=== PATIENT | female | born 1980 | race Caucasian/White ===

== ENCOUNTER 2016-11-11 07:27 | Inpatient (IN) | payer OTHER ==
--- NOTE | 2016-11-09 12:32 | PAT Medication Instructions ---
Service Date Nov 09, 2016. Current Home Medication List Multivitamin (Multivitamin), 1 TAB PO QAM Medication Instructions For Your Scheduled Surgery - Hold the following medications the morning of surgery: Multivitamin (Multivitamin), 1 TAB PO QAM If you have any questions please call us at [phone] or [phone] ( [place]) or [phone]
[2016-11-09 13:06] LABS: BASO % 0.4 %; BASO ABS # 0.03 K/uL (0-0.2); COMPLETE YES; EOS % 0.8 %; HEMATOCRIT 30.3 % (37-47); IG% 0.3 %; LYMPH % 17.8 %; LYMPH ABS # 1.35 K/uL (1.2-3.4); MEAN CELL VOLUME 84.2 fL (80-100); MEAN CORPUSCULAR HEMOGLOBIN 28.9 pg (25-34); MEAN CORPUSCULAR HGB CONC 34.3 g/dl (32-36); MEAN PLATELET VOLUME 9.5 fL (7.4-10.4); MONO % 5.8 %; NEUT % 74.9 %; PLATELET COUNT 220 K/uL (130-400); WHITE BLOOD COUNT 7.59 K/uL (4.8-10.8)
[~2016-11-11] VITALS: Ht 157.5 cm; Wt 80.3 kg
[~2016-11-11 07:27] MED LIST: CEFAZOLIN IV 2,000 MG in DEXTROSE 5% 50ML IV SCH; CITRIC ACID/SODIUM CITRATE 15 ML UDC PO SCH; LACTATED RINGER'S 1000ML 1,000 ML IV SCH; MULT-506 PO
[2016-11-20] MEDS ORDERED: LACTATED RINGER'S 1000ML 1,000 ML IV PRN (07:29)
[2016-11-20] MEDS ORDERED: PENICILLIN G POTASSIUM IV 6 MU in DEXTROSE 5% 250ML 250 ML IV ONE (07:30)
[2016-11-20] MEDS ORDERED: LACTATED RINGER'S 1000ML 500 ML IV PRN ×3 (07:37→23:00)
[2016-11-20] MEDS ORDERED: OXYTOCIN 30 UNITS/500ML NSS IV PRN (07:45)
[2016-11-20] MEDS: LACTATED RINGER'S 1000ML 1,000 ML IV SCH ×2 (08:17→13:54)
[2016-11-20 08:39] LABS: HEMATOCRIT 30.2 % (37-47); MEAN CORPUSCULAR HEMOGLOBIN 29.4 pg (25-34); MEAN CORPUSCULAR HGB CONC 35.4 g/dl (32-36); MEAN PLATELET VOLUME 9.7 fL (7.4-10.4); PLATELET COUNT 212 K/uL (130-400); RED BLOOD COUNT 3.64 M/uL (4.2-5.4); WHITE BLOOD COUNT 7.15 K/uL (4.8-10.8)
--- NOTE | 2016-11-20 08:48 | HISTORY & PHYSICAL EXAMINATION ---
DATE OF ADMISSION: 11/20/2016 CHIEF COMPLAINT: Scheduled induction of labor secondary to post-dates and polyhydramnios. HISTORY OF PRESENT ILLNESS: The patient is a 36-year-old 4, para 1 at 40 weeks and 3 days' gestation, who presents to labor and delivery for a scheduled induction of labor secondary to being post her due date and polyhydramnios. Her care has been uncomplicated otherwise. She is GBS positive and will begin with penicillin for GBS prophylaxis. She had a history of 1 spontaneous vaginal delivery in April of 2012. PAST MEDICAL HISTORY: The patient had spontaneous miscarriage in May of 2011 and June of 2014. PAST SURGICAL HISTORY: She had 1 spontaneous vaginal delivery in April of 2012. The baby had imperforate anus, but is currently doing well. SOCIAL HISTORY: She denies tobacco, alcohol or drug use. MEDICATIONS: vitamins. ALLERGIES: No known drug allergies. LABS: Blood type is O positive, group B strep positive, rubella immune, hepatitis B surface antigen negative, and RPR nonreactive. PHYSICAL EXAMINATION: VITAL SIGNS: Blood pressure is 106/74, heart rate of 102, respiration rate of 20, and temperature of 97.9. GENERAL: The patient is awake, alert and oriented x3. She is in no acute distress. HEART: Regular rate and rhythm. LUNGS: Clear to auscultation bilaterally. ABDOMEN: Gravid uterus, appropriate for gestational age. Estimated weight 7-8 pounds. Bowel sounds present x4. EXTREMITIES: No clubbing, cyanosis or calf tenderness. VAGINAL EXAM: She is 4-cm dilated, 50% effaced and -3 station. heart tones are category 1. Contractions are irregular. ASSESSMENT AND PLAN: A 36-year-old 4, para 1 at 40 weeks and 3 days' gestation, will be admitted to labor and delivery for a scheduled induction of labor. Will begin with Pitocin per protocol and penicillin for GBS prophylaxis. Will augment labor as needed and anticipate vaginal delivery. SUE
[2016-11-20 09:00] VITALS: Ht 157.5 cm; Wt 80.3 kg
[2016-11-20] MEDS ORDERED: FENTANYL 2MCG/ML ROPIV 1.25MG/ML 100ML BAG EPI ONE (10:42)
[2016-11-20] MEDS ORDERED: EpHEDrine SULFATE INJ 50 MG/ML AMP ONE (10:42)
[2016-11-20] MEDS ORDERED: BUPIVACAINE 0.25% 30 ML VIAL ONE (10:42)
[2016-11-20] MEDS ORDERED: FENTANYL CITRATE INJ 50 MCG/1 ML 2 ML VIAL ONE (10:43)
[2016-11-20] MEDS ORDERED: EpHEDrine SULFATE INJ 50 MG/ML AMP IV PRN ×3 (11:45→23:00)
[2016-11-20] MEDS ORDERED: NALOXONE HCL INJ 0.4 MG/1 ML VIAL/CARP IV PRN (11:45)
[2016-11-20] MEDS: PENICILLIN G POTASSIUM IV 3 MU in DEXTROSE 5% 100ML 100 ML IV PRN ×2 (12:28→16:38)
[2016-11-20] MEDS ORDERED: TERBUTALINE SULFATE 1 MG/ML VIAL SQ ONE (15:15)
[2016-11-20] MEDS: FENTANYL 2MCG/ML ROPIV 1.25MG/ML 100ML BAG EPI PRN ×2 (16:23→19:42)
[2016-11-20] MEDS ORDERED: ONDANSETRON INJ 2 MG/ML 2 ML VIAL ONE ×2 (20:29→21:52)
[2016-11-20] MEDS ORDERED: ONDANSETRON INJ 2 MG/ML 2 ML VIAL IV STA (20:30)
[2016-11-20] MEDS ORDERED: CEFAZOLIN IV 2,000 MG in DEXTROSE 5% 50ML 50 ML IV STA (21:12)
[2016-11-20] MEDS ORDERED: CITRIC ACID/SODIUM CITRATE 15 ML UDC PO STA (21:12)
[2016-11-20] MEDS ORDERED: MoRPHine SULFATE PF 1 MG/ML 10 ML AMP/VIAL ONE (21:40)
[2016-11-20] MEDS ORDERED: PROPOFOL IV EMULSION 10 MG/ML 20 ML VIAL IV ONE (21:52)
[2016-11-20] MEDS ORDERED: PHENYLEPHRINE 100MCG/ML 5ML SYR ONE (21:52)
[2016-11-20] MEDS ORDERED: METOCLOPRAMIDE HCL INJ 5 MG/ML 2 ML VIAL ONE (21:52)
[2016-11-20] MEDS ORDERED: OXYTOCIN INJ 10 UNITS/ML VIAL ONE (21:52)
[2016-11-20] MEDS ORDERED: DC INTRASPINAL MORPHINE SCH (21:55)
[2016-11-20] MEDS ORDERED: MEPERIDINE HCL 25 MG/ML CARP ONE (22:01)
[2016-11-20] MEDS ORDERED: LACTATED RINGER'S 1000ML 1,000 ML IV SCH (22:48)
--- NOTE | 2016-11-20 22:56 | [facility] Post Operative Brief Note ---
Immediate Operative Summary Operative Date Nov 20, 2016. Pre-Operative Diagnosis IUP; Primary caesarean section for intolerance to labor Post-Operative Diagnosis Same Procedure(s) Performed Primary caesarean section Delivery of live male child at 2147 Lower uterine transverse incision Surgeon Dr. De La Cruz Track And Field Coach Surgeon(s) Meggan Garcia RN Estimated Blood Loss 1000cc Findings Patient delivered a viable male infant in the vertex position at 2147 on via PLTCS secondary to intolerance of labor. Weight was 8#2 oz with APGARs of 8 at 1 minute and 9 at 5 minutes. Cord blood obtained. Intact placenta with a 3 VC delivered manually at 2148. There was extensive adhesions to the posterior uterus. The sigmoid colon and bilateral tubes and ovaries were tightly adhered to the posterior uterus. Extensive scar tissue and signs of endometriosis noted. There was a 5-6 cm pedunculated fibroid located at the left anterior uterine wall. Uterus was somewhat boggy and enlarged consistent with a fibroid uterus. Both patient and baby tolerated the surgery well and was sent to recovery with stable vital signs. Fluids (cc crystalloids) 2800 Specimens placenta-exam cord blood Drains Medeiros to gravity Anesthesia Epidural bolus Complication(s) None Disposition L&D
[2016-11-20] MEDS ORDERED: SENNA 8.6 MG TAB PO PRN (23:00)
[2016-11-20] MEDS ORDERED: PROMETHAZINE HCL INJ 25 MG in SODIUM CHLORIDE 0.9% 50ML 50 ML IV PRN (23:00)
[2016-11-20] MEDS ORDERED: ONDANSETRON INJ 2 MG/ML 2 ML VIAL IV PRN ×2 (23:00)
[2016-11-20] MEDS ORDERED: ATROPINE SULFATE 0.1 MG/ML 5ML SYR IV PRN (23:00)
[2016-11-20] MEDS ORDERED: SUPERCREAM 0.870 % 15GM JAR EXT PRN (23:00)
[2016-11-20] MEDS ORDERED: NALOXONE HCL INJ 1 MG in SODIUM CHLORIDE 0.9% 1000ML 1,000 ML IV PRN ×4 (23:00)
[2016-11-20] MEDS ORDERED: LANOLIN OINT EXT PRN ×2 (23:00)
[2016-11-20] MEDS ORDERED: MEPERIDINE HCL 25 MG/ML CARP IV PRN ×2 (23:00)
[2016-11-20] MEDS ORDERED: PHENYLEPHRINE 100MCG/ML 5ML SYR IV PRN (23:00)
[2016-11-20] MEDS ORDERED: NALOXONE HCL 0.4 MG/1 ML VIAL/CARP IV PRN (23:00)
[2016-11-20] MEDS ORDERED: NALOXONE HCL INJ 0.08 MG in SYRINGE 1.8 ML IV PRN (23:00)
[2016-11-20] MEDS ORDERED: DiphenhydrAMINE HCL 50 MG/ML VIAL IV PRN (23:00)
[2016-11-20] MEDS ORDERED: BENZOCAINE 20% AER SPR 82.5 GM CAN EXT PRN (23:00)
[2016-11-20] MEDS ORDERED: PROMETHAZINE HCL INJ 12.5 MG in SODIUM CHLORIDE 0.9% 50ML 50 ML IV PRN (23:00)
[2016-11-20] MEDS ORDERED: NALBUPHINE HCL INJ 10 MG/ML AMP IV PRN (23:00)
[2016-11-20] MEDS ORDERED: SODIUM CHLORIDE 0.9% 1000ML 1,000 ML IV PRN (23:00)
[2016-11-20] MEDS ORDERED: MoRPHine SULFATE PF 1 MG/ML 10 ML AMP/VIAL EPI PRN (23:00)
[2016-11-20] MEDS ORDERED: DIPHTHERIA/TETANUS/PERTUSSIS 0.5 ML SYR/VIAL IM. ONE (23:00)
[2016-11-20] MEDS ORDERED: HYDROCORTISONE ACETATE 25 MG SUPP PR PRN (23:00)
[2016-11-20] MEDS ORDERED: NO NARCOTICS OR SEDATIVES SCH (23:00)
--- NOTE | 2016-11-20 23:04 | Anesthesia Procedure Note ---
Anesthesia Epidural Removal Nt Date & Time Nov 20, 2016 at 23:04 Vital Signs Pain Intensity: 3.0 Notes Mental Status: alert / awake / arousable, participated in evaluation Nausea / Vomiting: adequately controlled Pain: adequately controlled Airway Patency, RR, SpO2: stable & adequate BP & HR: stable & adequate Hydration State: stable & adequate Neuraxial Anesthesia: was administered Anesthetic Complications: no major complications apparent, pt satisfied with anesthetic care Epidural: removed without complications, with tip intact
[2016-11-20 23:25] LABS: HEMATOCRIT 25.6 % (37-47)
[2016-11-20] MEDS: OXYTOCIN INJ 30 UNITS in LACTATED RINGER'S 1000ML 1,000 ML IV SCH (23:39)
[2016-11-21] VITALS (21 sets, daily range): BP systolic 96–119; BP diastolic 62–77; PULSE 81–98; TEMP 36.6–37.4; O2SAT 95–100
--- NOTE | 2016-11-21 00:41 | OPERATIVE REPORT ---
DATE OF OPERATION: 11/20/2016 PREOPERATIVE DIAGNOSES: 1. Intrauterine at 40 weeks and 3 days gestation. 2. Polyhydramnios. 3. intolerance of labor. POSTOPERATIVE DIAGNOSES: Same. 4. Fibroid uterus. 5. Extensive uterine adhesions. OPERATIVE PROCEDURE: Primary low transverse section. SURGEON: Dr. De La Cruz. DROP PIT WORKER: Meggan Garcia RN. ANESTHESIA: Bolus of her epidural. ESTIMATED BLOOD LOSS: 1000 mL. IV FLUIDS: 2800 mL crystalloids. URINE OUTPUT: 25 mL clear urine. SPECIMENS: Placenta and cord blood. DRAINS: Medeiros to gravity. COMPLICATIONS: None. DISPOSITION: To labor and delivery. OPERATIVE FINDINGS: The patient delivered a viable male infant in the vertex position at 2147 on 11/20/2016 via primary low transverse section secondary to intolerance of labor. Weight was 8 pounds 2 ounces with Apgars of 8 at 1 minute and 9 at 5 minutes. Cord blood was obtained and intact placenta with 3-vessel cord delivered manually at 2148 and sent to pathology. There were extensive adhesions to the posterior uterus. Sigmoid colon and bilateral fallopian tubes and ovaries were tightly adhered to the posterior uterus. There was extensive scar tissue and signs of endometriosis noted. There was also a 5-6 cm pedunculated fibroid located at the left anterior uterus. The uterus was somewhat boggy and enlarged, consistent with fibroid uterus. Both patient and baby tolerated the surgery well and were sent to recovery with stable vital signs. INDICATIONS FOR PROCEDURE: The patient is a 36-year-old 4, para 1 at 40 weeks and 3 days gestation who was scheduled for induction of labor, secondary to being postdates and polyhydramnios. On the morning of 11/20/2016, she was found to be 4 cm dilated. On admission, oxytocin per protocol was started. She received an epidural for anesthesia. Artificial rupture of membranes was performed at 1331 with copious amount of clear amniotic fluid noted. Oxytocin was continued. Baby had a prolonged deceleration and therefore Pitocin was stopped. After the baby recovered with category 1 strip, oxytocin was restarted. Baby continued to have variable and late decelerations. The patient reached anterior lip, 100% effaced and 0 station. A trial of pushing was begun with no descent; therefore, she was allowed to labor down. The baby continued to have recurrent late decelerations; therefore, a primary section was called. Risks, benefits and alternatives were discussed with the patient and informed consent was obtained. OPERATIVE PROCEDURE IN DETAIL: The patient was taken to the operating room and was placed in a supine position with a left lateral tilt. Her epidural was bolused. She was prepped and draped in a manner appropriate for the procedure. Once anesthesia was found to be adequate, a Pfannenstiel skin incision was made 2 fingerbreadths above the pubic symphysis and was carried down through to a layer of the rectus fascia. Fascia was nicked in the midline and extended bilaterally with curved Burkett scissors. The superior aspect of the fascial incision was grasped with Felipe clamps, elevated, and the rectus muscles were dissected off with the use of the curved Burkett scissors and electrocautery. Likewise, the inferior aspect of the fascial incision was grasped with Felipe clamps, elevated, and the rectus muscles were dissected off with the use of electrocautery and curved Burkett scissors. Rectus muscles were in the midline. The peritoneum was entered bluntly and extended cephalocaudally with gentle traction. A bladder blade was then placed within the abdomen. The vesicouterine peritoneum was identified and a bladder flap was created with the Metzenbaum scissors and digital traction. The bladder flap was reincorporated beneath the [place] blade. A transverse incision was then made on the uterus and extended bilaterally with digital traction. The head was identified and delivered through the incision along with the rest of the body. Baby was bulb suctioned at delivery. Cord was clamped x2 and cut. The baby was immediately handed to the awaiting package checker for further evaluation and management. Please see their notes for further baby assessment. Cord blood was then obtained and an intact placenta with 3-vessel cord was delivered through the incision manually and sent to pathology. The uterus was then exteriorized and wrapped in a moist laparotomy sponge. The uterus was then cleared of any trailing membrane and debris with a laparotomy sponge. The uterine incision was grasped with ring forceps at 4 quadrants and was closed with 0 Vicryl suture in continuous locking fashion. A second layer of 0 Vicryl suture was used in an imbricating fashion to ensure hemostasis. Any residual bleeding was suture ligated with 0 Vicryl suture in a [id number] interrupted fashion. Excellent hemostasis was noted. The posterior cul-de-sac was then irrigated with warm saline solution. It was noted that there was extensive scar tissue at the posterior uterus. The sigmoid colon and bilateral fallopian tubes and ovaries were tightly adhered to the posterior wall of the uterus. There was also a 5-6 cm pedunculated fibroid located at the left side anterior uterus. Inspection of the uterine incision was again noted to be hemostatic. The uterus was then placed back within its normal anatomic position within the abdomen. The anterior cul-de-sac was then irrigated with warm saline solution. Any residual bleeding was suture ligated with 0 Vicryl suture in a [id number] interrupted fashion. Seprafilm was placed over the uterine incision along the fundus of the uterus. All instruments were then removed from the abdomen. The peritoneum was then grasped with Jade clamps and was closed with 2-0 Vicryl suture in continuous running fashion. Rectus fascia was then closed with 0 Vicryl suture in continuous running fashion. The subcutaneous tissue was then reapproximated with 2-0 Vicryl suture in an interrupted fashion. Skin was then closed with carlos. Excellent hemostasis was noted through all tissue layers. All sponge and instrument counts were found to be correct x2. The patient tolerated the surgery well and was sent to recovery with stable vital signs. I attest to the content of the Intraoperative Record and any orders documented therein. Any exceptio ns are noted below.
[2016-11-21 07:08] LABS: HEMATOCRIT 21.8 % (37-47); MEAN CELL VOLUME 83.8 fL (80-100); MEAN CORPUSCULAR HEMOGLOBIN 29.2 pg (25-34); MEAN CORPUSCULAR HGB CONC 34.9 g/dl (32-36); MEAN PLATELET VOLUME 9.2 fL (7.4-10.4); PLATELET COUNT 140 K/uL (130-400); WHITE BLOOD COUNT 18.63 K/uL (4.8-10.8)
[2016-11-21 07:32] LABS: BASO % 0.1 %; BASO ABS # 0.01 K/uL (0-0.2); COMPLETE YES; IG% 0.3 %; LYMPH % 5.5 %; LYMPH ABS # 1.03 K/uL (1.2-3.4); MONO % 3.5 %; NEUT % 90.6 %; TEAR DROP CELLS 1+
--- NOTE | 2016-11-21 07:56 | Anesthesiology Progress Note ---
Anesthesia Post Op Note Date & Time Nov 21, 2016 at 07:56 Vital Signs Pain Intensity: 1.0 Vital Signs Past 12 Hours Date Time Temp Pulse Resp B/P Pulse Ox O2 Delivery O2 Flow Rate FiO2 11/21/16 06:27 18 95 11/21/16 05:30 18 98 11/21/16 04:30 18 100 11/21/16 04:25 36.6 87 18 115/76 100 Room Air 11/21/16 03:30 18 97 11/21/16 02:30 18 97 11/21/16 01:30 36.8 98 18 109/69 98 Room Air 11/21/16 01:30 18 98 11/21/16 01:30 98 Room Air Notes Mental Status: alert / awake / arousable, participated in evaluation Pt Amnestic to Procedure: Yes Nausea / Vomiting: adequately controlled Pain: adequately controlled Airway Patency, RR, SpO2: stable & adequate BP & HR: stable & adequate Hydration State: stable & adequate Anesthetic Complications: no major complications apparent
[2016-11-21] MEDS ORDERED: FERROUS SULFATE 325 MG TAB PO SCH (08:00)
--- NOTE | 2016-11-21 08:24 | OB/GYN Progress Note ---
BUSINESS LINE CONTROLLER Progress Note Date of Service: Nov 21, 2016. Patient is seen and examined. She feels well, no complaints. Pain is under control with meds. Not OOB yet Medeiros is in, draining clear yellow urine Tolerating clears Flatus neg Bleeding is minimal No fever/ chills/ CP/ SOB/dizziness/ N&V/ Leg pain Breast feeding without problems Date Time Temp Pulse Resp B/P Pulse Ox O2 Delivery O2 Flow Rate FiO2 11/21/16 07:55 36.6 81 16 119/77 99 Room Air 11/21/16 06:27 18 95 11/21/16 05:30 18 98 11/21/16 04:30 18 100 11/21/16 04:25 36.6 87 18 115/76 100 Room Air 11/21/16 03:30 18 97 11/21/16 02:30 18 97 11/21/16 01:30 36.8 98 18 109/69 98 Room Air 11/21/16 01:30 18 98 11/21/16 01:30 98 Room Air 8-Hour Column 11/20/16 11/21/16 11/21/16 16:00 00:00 08:00 Intake Total 615 ml Output Total 550 ml Balance 65 ml 24-Hour Column 11/21/16 08:00 Intake Total 615 ml Output Total 550 ml Balance 65 ml Last 24 Hours Test 11/20/16 23:21 11/21/16 06:50 Hemoglobin 8.8 g/dL 7.6 g/dL Hematocrit 25.6 % 21.8 % White Blood Count 18.63 K/uL Red Blood Count 2.60 M/uL Mean Corpuscular Volume 83.8 fL Mean Corpuscular Hemoglobin 29.2 pg Mean Corpuscular Hemoglobin Concent 34.9 g/dl Platelet Count 140 K/uL Mean Platelet Volume 9.2 fL Neutrophils (%) (Auto) 90.6 % Lymphocytes (%) (Auto) 5.5 % Monocytes (%) (Auto) 3.5 % Eosinophils (%) (Auto) 0.0 % Basophils (%) (Auto) 0.1 % Neutrophils # (Auto) 16.88 K/uL Lymphocytes # (Auto) 1.03 K/uL Monocytes # (Auto) 0.66 K/uL Eosinophils # (Auto) 0.00 K/uL Basophils # (Auto) 0.01 K/uL RDW Standard Deviation 46.7 fL RDW Coefficient of Variation 15.1 % Immature Granulocyte % (Auto) 0.3 % Immature Granulocyte # (Auto) 0.05 K/uL Tear Drop Cells 1+ PE: General: Alert, orientedx3, NAD CVS: S1S2 RRR Lungs; CTAB Abd: soft, NT, fundus firm, at the Umbilicus, BS+ Incision/ Dressinf Clean, dry Perineum intact, Lochia rubra minimal Ext; NT, no edema, SCD 's on AP: 36 yo s/p C Section, pod# 1 VSS Afebrile doing well Anemic: asymptomatic, normal pulse and UOP Discussed blood transfusion, the risks and benefits Decided to hold on than until noon and recheck H&H Continue to monitor to monitor Dangle legs and then ambulate this evening All questions were answered
[2016-11-21] MEDS: FERROUS SULFATE 325 MG TAB PO SCH ×2 (08:49→20:07)
[2016-11-21] MEDS: PRENATAL VITAMIN TAB PO SCH (08:50)
[2016-11-21] MEDS: DOCUSATE SODIUM 100 MG CAP PO SCH ×2 (08:50→20:06)
[2016-11-21] MEDS: SIMETHICONE 80 MG CHEW PO SCH ×4 (08:51→20:06)
[2016-11-21] MEDS: OXYTOCIN INJ 30 UNITS in LACTATED RINGER'S 1000ML 1,000 ML IV SCH (10:28)
[2016-11-21 12:36] LABS: HEMATOCRIT 21.9 % (37-47); MEAN CELL VOLUME 84.6 fL (80-100); MEAN CORPUSCULAR HEMOGLOBIN 29.3 pg (25-34); MEAN CORPUSCULAR HGB CONC 34.7 g/dl (32-36); MEAN PLATELET VOLUME 9.3 fL (7.4-10.4); PLATELET COUNT 134 K/uL (130-400); RED BLOOD COUNT 2.59 M/uL (4.2-5.4); WHITE BLOOD COUNT 17.12 K/uL (4.8-10.8)
[2016-11-21 13:15] LABS: BASO % 0.1 %; BASO ABS # 0.01 K/uL (0-0.2); COMPLETE YES; EOS % 0.1 %; IG% 0.3 %; LYMPH % 5.2 %; LYMPH ABS # 0.89 K/uL (1.2-3.4); MONO % 3.5 %; NEUT % 90.8 %; TEAR DROP CELLS OCCASIONAL
[2016-11-21] MEDS ORDERED: OXYCODONE/ACETAMINOPHEN 5-325 TAB PO PRN (15:00)
[2016-11-21] MEDS: KETOROLAC TROMETHAMINE 30 MG/ML VIAL IV. PRN (15:29)
[2016-11-21] MEDS: OXYCODONE/ACETAMINOPHEN 5-325 TAB PO PRN ×2 (20:06→23:52)
[2016-11-21] MEDS ORDERED: BISACODYL 5 MG TABEC PO ONE (22:00)
--- NOTE | 2016-11-21 23:31 | OB/GYN Progress Note ---
CUFF FOLDER Progress Note Date of Service: Nov 21, 2016. Patient is reevaluated She feels well She has been up to BR X3 without dizziness or light headedness Has been voiding w/o problems Pain is under control with meds Bleeding is minimal VSS Afebrile H&H was low but stable at noon Plan to repeat in am Continue to monitor closely
[2016-11-21] MEDS: IBUPROFEN 600 MG TAB PO PRN (23:51)
[2016-11-22] VITALS (15 sets, daily range): BP systolic 92–122; BP diastolic 61–79; PULSE 70–92; TEMP 36.3–36.9; O2SAT 97
[2016-11-22] MEDS: IBUPROFEN 600 MG TAB PO PRN ×5 (03:40→20:53)
[2016-11-22] MEDS: OXYCODONE/ACETAMINOPHEN 5-325 TAB PO PRN ×5 (03:41→20:53)
[2016-11-22] MEDS: SIMETHICONE 80 MG CHEW PO SCH ×4 (07:48→20:10)
[2016-11-22] MEDS: FERROUS SULFATE 325 MG TAB PO SCH ×2 (07:48→20:10)
[2016-11-22] MEDS: DOCUSATE SODIUM 100 MG CAP PO SCH ×2 (07:48→20:10)
[2016-11-22] MEDS: MAGNESIUM HYDROXIDE SUSP 30 ML UDC PO PRN ×2 (07:56→14:30)
[2016-11-22 08:11] LABS: HEMATOCRIT 19.4 % (37-47); MEAN CELL VOLUME 84.7 fL (80-100); MEAN CORPUSCULAR HEMOGLOBIN 29.3 pg (25-34); MEAN CORPUSCULAR HGB CONC 34.5 g/dl (32-36); MEAN PLATELET VOLUME 9.4 fL (7.4-10.4); PLATELET COUNT 141 K/uL (130-400); RED BLOOD COUNT 2.29 M/uL (4.2-5.4); WHITE BLOOD COUNT 15.47 K/uL (4.8-10.8)
[2016-11-22 08:22] LABS: COMPLETE YES; EOS % 0.3 %; IG% 0.4 %; LYMPH % 7.2 %; LYMPH ABS # 1.12 K/uL (1.2-3.4); MONO % 3.9 %; NEUT % 88.2 %
--- NOTE | 2016-11-22 08:34 | OB/GYN Progress Note ---
LICENSED PSYCHIATRIC TECHNICIAN Progress Note Date of Service: Nov 22, 2016. Patient is seen and examined. She feels well, no complaints. Pain is under control with oral meds. Ambulating without dizziness Voiding without difficulty Tolerating clear diet with out N&V Flatus neg Bleeding is minimal No fever/ chills/ CP/ SOB/ N&V/ Leg pain Breast feeding without problems Date Time Temp Pulse Resp B/P Pulse Ox O2 Delivery O2 Flow Rate FiO2 11/22/16 03:42 36.4 70 18 92/61 97 Room Air 11/21/16 23:30 37.1 82 18 96/62 97 Room Air 11/21/16 23:30 97 Room Air 11/21/16 19:45 37.4 96 16 112/69 97 Room Air 11/21/16 15:30 36.8 96 20 109/73 Room Air 11/21/16 15:30 99 Room Air 11/21/16 15:00 98 11/21/16 15:00 20 99 11/21/16 14:00 16 99 11/21/16 13:00 18 99 11/21/16 12:01 18 99 11/21/16 11:59 36.7 89 18 108/73 99 Room Air 11/21/16 11:30 18 99 11/21/16 10:30 18 99 11/21/16 09:30 18 99 Last 24 Hours Test 11/21/16 12:27 11/22/16 07:30 White Blood Count 17.12 K/uL 15.47 K/uL Red Blood Count 2.59 M/uL 2.29 M/uL Hemoglobin 7.6 g/dL 6.7 g/dL Hematocrit 21.9 % 19.4 % Mean Corpuscular Volume 84.6 fL 84.7 fL Mean Corpuscular Hemoglobin 29.3 pg 29.3 pg Mean Corpuscular Hemoglobin Concent 34.7 g/dl 34.5 g/dl Platelet Count 134 K/uL 141 K/uL Mean Platelet Volume 9.3 fL 9.4 fL Neutrophils (%) (Auto) 90.8 % 88.2 % Lymphocytes (%) (Auto) 5.2 % 7.2 % Monocytes (%) (Auto) 3.5 % 3.9 % Eosinophils (%) (Auto) 0.1 % 0.3 % Basophils (%) (Auto) 0.1 % 0.0 % Neutrophils # (Auto) 15.56 K/uL 13.64 K/uL Lymphocytes # (Auto) 0.89 K/uL 1.12 K/uL Monocytes # (Auto) 0.60 K/uL 0.60 K/uL Eosinophils # (Auto) 0.01 K/uL 0.05 K/uL Basophils # (Auto) 0.01 K/uL 0.00 K/uL RDW Standard Deviation 47.3 fL 47.9 fL RDW Coefficient of Variation 15.3 % 15.5 % Immature Granulocyte % (Auto) 0.3 % 0.4 % Immature Granulocyte # (Auto) 0.05 K/uL 0.06 K/uL Tear Drop Cells OCCASIONAL Red Blood Cell Morphology Unremarkable PE: General: Alert, orientedx3, NAD CVS: S1S2 RRR Lungs; CTAB Abd: soft, NT, fundus firm, below Umbilicus Incision: Clean, dry, intact Perineum intact, Lochia rubra minimal Ext; NT, no edema AP: 36 yo s/p C Section, pod# 2 VSS Afebrile doing well Anemic: H&H lower today, still tolerating well Discussed blood transfusion and the risks and benefits agrees and signed the consent Will transfuse 2 units Continue routine postop care Encourage ambulation, PO intake All questions were answered
[2016-11-22] MEDS: PRENATAL VITAMIN TAB PO SCH (09:10)
--- NOTE | 2016-11-22 11:14 | OB/GYN Progress Note ---
RANCH HAND Progress Note Date of Service: Nov 22, 2016. Blood transfusion has started Patient feels well, no complaints Premedicated with acetaminophen and Benadryl VSS Afebrile She is eating a popsicle now Continue to monitor closely
[2016-11-22] MEDS ORDERED: BISACODYL 10 MG SUPP ONE (14:24)
[2016-11-22] MEDS: MAGNESIUM HYDROXIDE SUSP 30 ML UDC PO SCH ×2 (20:00→23:04)
[2016-11-22] MEDS: BISACODYL 10 MG SUPP PR SCH (20:00)
[2016-11-22] MEDS ORDERED: MoRPHine SULFATE 2 MG/ML CARP IV STA (22:35)
--- NOTE | 2016-11-22 22:43 | OB/GYN Progress Note ---
STEAM TABLE ASSOCIATE Progress Note Date of Service: Nov 22, 2016. Patient is reevaluated I saw her this afternoon for unbale to pass gas Her abdomen was distended with bolwe loops with good BS, soft She was ordered MOM bid, Dulcolax Bid She took both once and moved her bowels x2, normal amount She has not been passing gas much but burping more She c/o soreness in incision and back pain. Pain 6-7/10, s/p 1 percoset and Motrin at 2100 She tolerated regular diet with no N&V She walked in the [place] with no dizzenss Date Time Temp Pulse Resp B/P Pulse Ox O2 Delivery O2 Flow Rate FiO2 11/22/16 16:15 36.9 79 16 117/77 Room Air 11/22/16 16:15 36.9 79 16 117/77 11/22/16 16:15 Room Air 11/22/16 15:15 36.8 85 20 122/79 11/22/16 14:45 36.8 80 18 103/69 11/22/16 14:15 36.7 92 20 110/69 11/22/16 14:00 36.7 81 18 112/75 11/22/16 13:39 36.6 81 20 111/75 11/22/16 13:10 36.6 81 20 111/75 11/22/16 12:15 36.3 73 20 109/73 11/22/16 11:45 36.5 81 16 106/70 11/22/16 11:15 36.6 80 18 97/61 11/22/16 11:00 36.7 84 18 110/66 11/22/16 10:47 36.6 86 18 104/68 11/22/16 10:10 36.6 86 18 104/68 11/22/16 07:50 36.6 74 22 110/76 11/22/16 03:42 36.4 70 18 92/61 97 Room Air 11/21/16 23:30 37.1 82 18 96/62 97 Room Air 11/21/16 23:30 97 Room Air Abd: soft, distended, appropriately tender around incision, BS+, tympanic to percussion Fundus firm below U Lochia minimal Plan: Second dose of MOM, one time IV morphine for pain H&H, s/p 2 units of PRBCC Continue to monitor closely
[2016-11-22] MEDS ORDERED: BISACODYL 10 MG SUPP PR PRN (23:00)
[2016-11-23 00:20] VITALS: BP 123/80; PULSE 89; TEMP 36.7; O2SAT 97
[2016-11-23] MEDS: IBUPROFEN 600 MG TAB PO PRN (01:00)
[2016-11-23] MEDS: OXYCODONE/ACETAMINOPHEN 5-325 TAB PO PRN (01:01)
[2016-11-23] MEDS: ONDANSETRON INJ 2 MG/ML 2 ML VIAL IV PRN (06:12)
[2016-11-23 06:22] LABS: BASO % 0.1 %; BASO ABS # 0.01 K/uL (0-0.2); COMPLETE YES; EOS % 0.3 %; HEMATOCRIT 32.1 % (37-47); IG% 0.4 %; LYMPH % 4.8 %; LYMPH ABS # 0.74 K/uL (1.2-3.4); MEAN CELL VOLUME 85.4 fL (80-100); MEAN PLATELET VOLUME 9.4 fL (7.4-10.4); MONO % 2.3 %; NEUT % 92.1 %; PLATELET COUNT 228 K/uL (130-400); RED BLOOD COUNT 3.76 M/uL (4.2-5.4)
[2016-11-23 08:00] VITALS: BP 125/84; PULSE 78; TEMP 37; O2SAT 97
[2016-11-23] MEDS: DOCUSATE SODIUM 100 MG CAP PO SCH ×2 (08:00→20:00)
[2016-11-23] MEDS: SIMETHICONE 80 MG CHEW PO SCH ×3 (08:00→20:00)
[2016-11-23] MEDS: PRENATAL VITAMIN TAB PO SCH (08:00)
[2016-11-23] MEDS: FERROUS SULFATE 325 MG TAB PO SCH ×2 (08:00→20:00)
[2016-11-23] MEDS: KETOROLAC TROMETHAMINE 30 MG/ML VIAL IV. PRN ×3 (08:14→21:05)
--- NOTE | 2016-11-23 08:24 | OB/GYN Progress Note ---
MARKETING FORECASTER Progress Note Date of Service Nov 23, 2016. Subjective conversation w/ patient, physical exam Ambulation: limited ambulation Voiding: no voiding problems Passing Gas: No Diet Tolerance: Nausea/Vomiting Lochia: Small Pain: 6-7/10 Notes: Patient having significant abdominal distention and pain along with nausea and vomiting. Has had a bowel movement x 2. Incision is c/d/i. Will order abdominal x-ray, suspect postop ileus, will consider NG tube. Objective Vital Signs Date Time Temp Pulse Resp B/P Pulse Ox O2 Delivery O2 Flow Rate FiO2 11/23/16 00:20 36.7 89 24 123/80 97 Room Air 11/23/16 00:20 97 Room Air 11/22/16 16:15 36.9 79 16 117/77 Room Air 11/22/16 16:15 36.9 79 16 117/77 11/22/16 16:15 Room Air 11/22/16 15:15 36.8 85 20 122/79 11/22/16 14:45 36.8 80 18 103/69 11/22/16 14:15 36.7 92 20 110/69 11/22/16 14:00 36.7 81 18 112/75 11/22/16 13:39 36.6 81 20 111/75 11/22/16 13:10 36.6 81 20 111/75 11/22/16 12:15 36.3 73 20 109/73 11/22/16 11:45 36.5 81 16 106/70 11/22/16 11:15 36.6 80 18 97/61 11/22/16 11:00 36.7 84 18 110/66 11/22/16 10:47 36.6 86 18 104/68 11/22/16 10:10 36.6 86 18 104/68 Physical Exam General Appearance: uncomfortable, in pain, moderate distress Respiratory/Chest: chest non-tender, lungs clear Cardiovascular: regular rate, rhythm Abdomen: + abnormal bowel sounds, + distended Incision Description: Clean, Dry & Intact Extremities: normal range of motion, non-tender, no calf tenderness Laboratory Results Last 24 Hours Test 11/22/16 22:51 11/23/16 06:02 Hemoglobin 9.8 g/dL 10.9 g/dL Hematocrit 28.0 % 32.1 % White Blood Count 15.40 K/uL Red Blood Count 3.76 M/uL Mean Corpuscular Volume 85.4 fL Mean Corpuscular Hemoglobin 29.0 pg Mean Corpuscular Hemoglobin Concent 34.0 g/dl Platelet Count 228 K/uL Mean Platelet Volume 9.4 fL Neutrophils (%) (Auto) 92.1 % Lymphocytes (%) (Auto) 4.8 % Monocytes (%) (Auto) 2.3 % Eosinophils (%) (Auto) 0.3 % Basophils (%) (Auto) 0.1 % Neutrophils # (Auto) 14.18 K/uL Lymphocytes # (Auto) 0.74 K/uL Monocytes # (Auto) 0.36 K/uL Eosinophils # (Auto) 0.05 K/uL Basophils # (Auto) 0.01 K/uL RDW Standard Deviation 47.0 fL RDW Coefficient of Variation 15.1 % Immature Granulocyte % (Auto) 0.4 % Immature Granulocyte # (Auto) 0.06 K/uL Assessment and Plan Post-Op Day Number: 3 Continue Routine Care: -Abdominal X-ray. suspect postop ileus, will consider NG tube pending results -NPO for now -Encourage ambulation -Toradol for pain -closely monitor.
--- NOTE | 2016-11-23 08:47 | DIAGNOSTIC IMAGING REPORT ---
ABDOMEN 2VIEW W/PA CHEST RTN CLINICAL HISTORY: post c section, abdominal pain, distention pain. Nausea. COMPARISON STUDY: 12/19/2015 FINDINGS: Lungs are considered clear. Diaphragms are smooth. Bowel pattern is consistent with a mild to moderate postoperative nonobstructive ileus. IMPRESSION: Postoperative nonobstructive ileus. Negative chest. Electronically signed by: Cristi Ortiz M.D. 11/23/2016 8:45 AM Dictated Date/Time: 11/23/2016 8:44 AM
[2016-11-23] MEDS: BISACODYL 10 MG SUPP PR SCH ×2 (09:02→23:12)
[2016-11-23] MEDS ORDERED: METOCLOPRAMIDE HCL INJ 5 MG/ML 2 ML VIAL IM ONE (11:00)
[2016-11-23 12:00] VITALS: BP 120/83; PULSE 103; TEMP 37.1; O2SAT 98
[2016-11-23] MEDS: METOCLOPRAMIDE HCL INJ 5 MG/ML 2 ML VIAL IV. SCH (12:31)
[2016-11-23] MEDS: LACTATED RINGER'S 1000ML 1,000 ML IV SCH ×2 (14:12→21:33)
[2016-11-23 16:06] VITALS: BP 118/80; PULSE 88; TEMP 37.2; O2SAT 98
[2016-11-23 19:15] VITALS: BP 137/85; PULSE 123; TEMP 36.4
[2016-11-23] MEDS: BENZOCAINE/TETRACAIN/BUTAM CAN 200 APPLN/20 GM CAN EXT PRN (19:52)
[2016-11-23] MEDS: MAGNESIUM HYDROXIDE SUSP 30 ML UDC PO SCH (20:00)
[2016-11-23 23:30] VITALS: BP 117/75; PULSE 95; TEMP 37.3
[2016-11-24] MEDS: METOCLOPRAMIDE HCL INJ 5 MG/ML 2 ML VIAL IV. SCH ×4 (02:18→19:38)
[2016-11-24 04:46] VITALS: BP 115/77; PULSE 105; TEMP 37.1
[2016-11-24] MEDS: LACTATED RINGER'S 1000ML 1,000 ML IV SCH ×3 (06:24→22:25)
[2016-11-24] MEDS: KETOROLAC TROMETHAMINE 30 MG/ML VIAL IV. PRN ×2 (06:39→12:50)
[2016-11-24 07:58] VITALS: BP 116/77; PULSE 82; TEMP 37; O2SAT 96; O2SAT 97
[2016-11-24] MEDS: MAGNESIUM HYDROXIDE SUSP 30 ML UDC PO SCH ×2 (08:00→20:00)
[2016-11-24] MEDS: FERROUS SULFATE 325 MG TAB PO SCH ×2 (08:00→20:00)
[2016-11-24] MEDS: DOCUSATE SODIUM 100 MG CAP PO SCH ×2 (08:00→20:00)
[2016-11-24] MEDS: BISACODYL 10 MG SUPP PR SCH ×2 (08:00→20:00)
[2016-11-24] MEDS: PRENATAL VITAMIN TAB PO SCH (08:00)
[2016-11-24] MEDS: SIMETHICONE 80 MG CHEW PO SCH ×4 (08:00→20:00)
--- NOTE | 2016-11-24 12:29 | Surgery Progress Note ---
Surgery Progress Note Date of Service Nov 24, 2016. Objective Vital Signs: Date Time Temp Pulse Resp B/P Pulse Ox O2 Delivery O2 Flow Rate FiO2 11/24/16 07:58 97 Room Air 11/24/16 07:58 37.0 82 20 116/77 96 Room Air 11/24/16 04:46 37.1 105 18 115/77 Room Air 11/23/16 23:30 37.3 95 18 117/75 Room Air 11/23/16 23:30 Room Air 11/23/16 20:00 Room Air 11/23/16 19:15 36.4 123 16 137/85 Room Air 11/23/16 16:06 37.2 88 17 118/80 98 Room Air 11/23/16 16:06 Room Air Abdomen: normal bowel sounds (No) Assessment & Plan C/SEC day #4 s/p post op ileus s/p Post op Anemia, Transfused with 2PRB on 11/21/[address] day #1 Tube still draining significant amount Q shift Pt has BM after she was given supp No BS will keep NGT in place Pt agree to plan
[2016-11-24 12:35] VITALS: BP 118/80; PULSE 98; TEMP 36.7; O2SAT 97
[2016-11-24 13:46] LABS: BUN/CREATININE RATIO 27.1 (10-20); CALCIUM 7.7 mg/dl (8.5-10.1); CREATININE 0.67 mg/dl (0.60-1.20); MAGNESIUM 2.7 mg/dl (1.8-2.4); POTASSIUM 3.3 mmol/L (3.5-5.1)
[2016-11-24 13:47] LABS: ALB/GLOB RATIO 0.5 (0.9-2)
[2016-11-24 14:16] LABS: COMPLETE YES; EOS % 1.4 %; HEMATOCRIT 27.3 % (37-47); IG% 0.4 %; LYMPH ABS # 0.78 K/uL (1.2-3.4); MEAN CELL VOLUME 85.8 fL (80-100); MEAN CORPUSCULAR HEMOGLOBIN 28.6 pg (25-34); MEAN CORPUSCULAR HGB CONC 33.3 g/dl (32-36); MEAN PLATELET VOLUME 8.7 fL (7.4-10.4); MONO % 9.8 %; NEUT % 72.4 %; PLATELET COUNT 253 K/uL (130-400); RED BLOOD COUNT 3.18 M/uL (4.2-5.4); WHITE BLOOD COUNT 4.89 K/uL (4.8-10.8)
[2016-11-24 15:50] VITALS: BP 100/69; PULSE 69; TEMP 36.5; O2SAT 97
[2016-11-24] MEDS: BENZOCAINE/TETRACAIN/BUTAM CAN 200 APPLN/20 GM CAN EXT PRN (19:38)
[2016-11-24 19:45] VITALS: BP 120/78; PULSE 78; TEMP 36.8
[2016-11-24 23:45] VITALS: BP 116/76; PULSE 74; TEMP 36.8
[2016-11-25] MEDS: METOCLOPRAMIDE HCL INJ 5 MG/ML 2 ML VIAL IV. SCH ×4 (02:46→19:51)
[2016-11-25 04:00] VITALS: BP 119/73; PULSE 68; TEMP 37
[2016-11-25] MEDS: LACTATED RINGER'S 1000ML 1,000 ML IV SCH (06:29)
[2016-11-25 08:00] VITALS: BP 115/79; PULSE 72; TEMP 36.7; O2SAT 97
[2016-11-25] MEDS: BISACODYL 10 MG SUPP PR SCH ×2 (08:00→19:49)
[2016-11-25] MEDS: DOCUSATE SODIUM 100 MG CAP PO SCH ×2 (08:00→19:48)
[2016-11-25] MEDS: PRENATAL VITAMIN TAB PO SCH (08:00)
[2016-11-25] MEDS: MAGNESIUM HYDROXIDE SUSP 30 ML UDC PO SCH ×2 (08:00→19:49)
[2016-11-25] MEDS: SIMETHICONE 80 MG CHEW PO SCH ×4 (08:00→19:49)
[2016-11-25] MEDS: FERROUS SULFATE 325 MG TAB PO SCH ×2 (08:00→19:49)
[2016-11-25] MEDS: BENZOCAINE/TETRACAIN/BUTAM CAN 200 APPLN/20 GM CAN EXT PRN (08:37)
[2016-11-25] MEDS: ONDANSETRON INJ 2 MG/ML 2 ML VIAL IV PRN (08:44)
--- NOTE | 2016-11-25 09:30 | OB/GYN Progress Note ---
MGMT SPECIALIST Progress Note Date of Service: Nov 25, 2016. Patient is seen and examined. She feels better, complains of mild nausea since this morning. No vomiting Tolerating NG tube well Pain is under control meds. Ambulating without dizziness Voiding without difficulty Flatus + BM +, liquid Bleeding is minimal No fever/ chills/ CP/ SOB/ N&V/ Leg pain Breast feeding without problems Date Time Temp Pulse Resp B/P Pulse Ox O2 Delivery O2 Flow Rate FiO2 11/25/16 04:00 37.0 68 16 119/73 Room Air 11/24/16 23:45 36.8 74 18 116/76 Room Air 11/24/16 23:45 Room Air 11/24/16 19:45 36.8 78 18 120/78 Room Air 11/24/16 15:50 36.5 69 18 100/69 97 Room Air 11/24/16 15:50 97 Room Air 11/24/16 12:35 36.7 98 18 118/80 97 Room Air 8-Hour Column 11/24/16 11/25/16 11/25/16 16:00 00:00 08:00 Intake Total 1125 ml 431 ml 957 ml Output Total 1550 ml 1300 ml 1700 ml Balance -425 ml -869 ml -743 ml 24-Hour Column 11/25/16 08:00 Intake Total 2513 ml Output Total 4550 ml Balance -2037 ml NGT: drained 1000 last shift 350 ml by now this shift Test 11/21/16 06:50 11/21/16 12:27 11/22/16 07:30 11/22/16 22:51 Tear Drop Cells 1+ OCCASIONAL White Blood Count 15.47 H Red Blood Count 2.29 L Hemoglobin 6.7 *L 9.8 #L Hematocrit 19.4 *L 28.0 L Mean Corpuscular Volume 84.7 Mean Corpuscular Hemoglobin 29.3 Mean Corpuscular Hemoglobin Concent 34.5 Platelet Count 141 Mean Platelet Volume 9.4 Neutrophils (%) (Auto) 88.2 Lymphocytes (%) (Auto) 7.2 Monocytes (%) (Auto) 3.9 Eosinophils (%) (Auto) 0.3 Basophils (%) (Auto) 0.0 Neutrophils # (Auto) 13.64 H Lymphocytes # (Auto) 1.12 L Monocytes # (Auto) 0.60 H Eosinophils # (Auto) 0.05 Basophils # (Auto) 0.00 RDW Standard Deviation 47.9 H RDW Coefficient of Variation 15.5 H Immature Granulocyte % (Auto) 0.4 Immature Granulocyte # (Auto) 0.06 H Red Blood Cell Morphology Unremarkable Test 11/23/16 06:02 11/24/16 13:07 White Blood Count 15.40 H 4.89 Red Blood Count 3.76 L 3.18 L Hemoglobin 10.9 L 9.1 L Hematocrit 32.1 L 27.3 L Mean Corpuscular Volume 85.4 85.8 Mean Corpuscular Hemoglobin 29.0 28.6 Mean Corpuscular Hemoglobin Concent 34.0 33.3 Platelet Count 228 # 253 Mean Platelet Volume 9.4 8.7 Neutrophils (%) (Auto) 92.1 72.4 Lymphocytes (%) (Auto) 4.8 16.0 Monocytes (%) (Auto) 2.3 9.8 Eosinophils (%) (Auto) 0.3 1.4 Basophils (%) (Auto) 0.1 0.0 Neutrophils # (Auto) 14.18 H 3.54 Lymphocytes # (Auto) 0.74 L 0.78 L Monocytes # (Auto) 0.36 0.48 Eosinophils # (Auto) 0.05 0.07 Basophils # (Auto) 0.01 0.00 RDW Standard Deviation 47.0 H 47.7 H RDW Coefficient of Variation 15.1 H 15.2 H Immature Granulocyte % (Auto) 0.4 0.4 Immature Granulocyte # (Auto) 0.06 H 0.02 Sodium Level 141 Potassium Level 3.3 L Chloride Level 103 Carbon Dioxide Level 29 Anion Gap 9.0 Blood Urea Nitrogen 18 Creatinine 0.67 Est Creatinine Clear Calc Drug Dose 116.2 Estimated GFR () 132.9 Estimated GFR (Non- 114.7 BUN/Creatinine Ratio 27.1 H Random Glucose 89 Calcium Level 7.7 L Magnesium Level 2.7 H Total Bilirubin 0.5 Aspartate Amino Transferase (AST) 19 Alanine Aminotransferase (ALT) 15 Alkaline Phosphatase 77 Total Protein 5.2 L Albumin 1.8 L Globulin 3.4 Albumin/Globulin Ratio 0.5 L PE: General: Alert, orientedx3, NAD CVS: S1S2 RRR Lungs; CTAB Abd: soft, NT, fundus firm, below Umbilicus, mildly distended, BS+, diminished, NGT draining greenish fluid Incision: Clean, dry, intact Perineum intact, Lochia rubra minimal Ext; NT, no edema AP: 36 yo s/p C Section, pod# 5 Postop ileus: NGT draining a lot: I called [facility] surgery for recommendations Dr. Whyte will be in s/p 2 units of PRBCC on 11/22: H&H stable VSS Afebrile doing well overall Will give her IVF bolus and change IVF to D5 with TOI in it Check electrolytes today Continue to monitor closely
[2016-11-25] MEDS: D5NSS + 20MEQ KCL 1,000 ML IV SCH ×3 (10:26→23:44)
[2016-11-25 10:33] LABS: HEMATOCRIT 25.2 % (37-47); MEAN CELL VOLUME 84.6 fL (80-100); MEAN CORPUSCULAR HEMOGLOBIN 28.9 pg (25-34); MEAN CORPUSCULAR HGB CONC 34.1 g/dl (32-36); MEAN PLATELET VOLUME 8.6 fL (7.4-10.4); PLATELET COUNT 236 K/uL (130-400); RED BLOOD COUNT 2.98 M/uL (4.2-5.4); WHITE BLOOD COUNT 4.31 K/uL (4.8-10.8)
[2016-11-25 10:52] LABS: BASO % 0.2 %; BASO ABS # 0.01 K/uL (0-0.2); COMPLETE YES; EOS % 1.2 %; IG% 0.2 %; LYMPH % 15.1 %; LYMPH ABS # 0.65 K/uL (1.2-3.4); MONO % 12.3 %
--- NOTE | 2016-11-25 10:53 | History and Physical ---
History & Physical Date & Time of Service: Nov 25, 2016 at 10:44 Chief Complaint: Induction Primary Care Physician: Ghada Yarbrough DO History of Present Illness Source: patient pt is a 36 year old female who had 5 days ago, pt started have nausea vomiting 3 days ago, but pt denies abdominal pain, passed water diarrhea 3 times a day, pt passed gas. pt carla fever, pt received 2 units RBC after C- section. Family History Patient reports no known family medical history. Social History Smoking Status: Never Smoker Smokeless Tobacco Use: No Alcohol Use: occasionally Drug Use: none Marital Status: Occupational Status: employed Allergies Coded Allergies: No Known Allergies (Unverified , 11/20/16) Home Medications Scheduled Multivitamin (Multivitamin), 1 TAB PO QAM Review of Systems Constitutional: No chills, No fatigue, No fever, No problem reported, No sweats , No weakness, No weight loss Eyes: No diplopia, No discharge, No eye pain, No problem reported, No redness, No worsening of vision ENT: No dental problems, No hearing loss, No nasal symptoms, No problem reported, No sore throat, No tinnitus, No trouble swallowing, No unusual epistaxis Respiratory: No cough, No dyspnea at rest, No dyspnea on exertion, No hemoptysis, No problem reported, No shortness of breath, No sputum, No wheezing Cardiovascular: No PND, No chest pain, No claudication, No edema, No orthopnea , No palpitations, No problem reported Abdomen: + diarrhea, + nausea Musculoskeletal: No calf pain, No joint pain, No muscle pain, No problem reported, No swelling Genitourinary - Female: No dysmenorrhea, No dysuria, No hematuria, No menorrhagia, No metrorrhagia, No , No problem reported, No rash, No urinary frequency, No urinary incontinence, No urinary retention, No urinary urgency, No vaginal bleeding, No vaginal discharge, No vaginal itching, No vulvodynia Neurologic: No balance problems, No memory loss, No numbness/tingling, No paralysis, No problem reported, No vertigo, No weakness Endocrine: No excessive thirst, No excessive urination, No fatigue, No problem reported Hematologic / Lymphatic: No abnormal bleeding/bruising, No clotting problems, No night sweats, No problem reported, No swollen lymph nodes Physical Exam Vital Signs Date Time Temp Pulse Resp B/P Pulse Ox O2 Delivery O2 Flow Rate FiO2 11/25/16 08:00 36.7 72 18 115/79 97 Room Air 11/25/16 08:00 Room Air 11/25/16 04:00 37.0 68 16 119/73 Room Air 11/24/16 23:45 36.8 74 18 116/76 Room Air 11/24/16 23:45 Room Air 11/24/16 19:45 36.8 78 18 120/78 Room Air 11/24/16 15:50 36.5 69 18 100/69 97 Room Air 11/24/16 15:50 97 Room Air 11/24/16 12:35 36.7 98 18 118/80 97 Room Air General Appearance: WD/WN Head: normocephalic Eyes: normal inspection ENT: normal ENT inspection Neck: supple, no JVD Respiratory/Chest: chest non-tender, lungs clear Cardiovascular: regular rate, rhythm, no edema, no gallop, no JVD Abdomen/GI: normal bowel sounds, non tender, soft, no organomegaly Extremities/Musculoskelatal: normal inspection, no calf tenderness Neurologic/Psych: fish filleter II-XII nml as tested, no motor/sensory deficits Diagnostics Laboratory Results Results Past 24 Hours Test 11/24/16 13:07 11/25/16 10:10 Range/Units White Blood Count 4.89 4.31 4.8-10.8 K/uL Red Blood Count 3.18 2.98 4.2-5.4 M/uL Hemoglobin 9.1 8.6 12.0-16.0 g/dL Hematocrit 27.3 25.2 37-47 % Mean Corpuscular Volume 85.8 84.6 80-100 fL Mean Corpuscular Hemoglobin 28.6 28.9 25-34 pg Mean Corpuscular Hemoglobin Concent 33.3 34.1 32-36 g/dl Platelet Count 253 236 130-400 K/uL Mean Platelet Volume 8.7 8.6 7.4-10.4 fL Neutrophils (%) (Auto) 72.4 % Lymphocytes (%) (Auto) 16.0 % Monocytes (%) (Auto) 9.8 % Eosinophils (%) (Auto) 1.4 % Basophils (%) (Auto) 0.0 % Neutrophils # (Auto) 3.54 1.4-6.5 K/uL Lymphocytes # (Auto) 0.78 1.2-3.4 K/uL Monocytes # (Auto) 0.48 0.11-0.59 K/uL Eosinophils # (Auto) 0.07 0-0.5 K/uL Basophils # (Auto) 0.00 0-0.2 K/uL RDW Standard Deviation 47.7 46.1 36.4-46.3 fL RDW Coefficient of Variation 15.2 14.9 11.5-14.5 % Immature Granulocyte % (Auto) 0.4 % Immature Granulocyte # (Auto) 0.02 0.00-0.02 K/uL Sodium Level 141 136-145 mmol/L Potassium Level 3.3 3.5-5.1 mmol/L Chloride Level 103 98-107 mmol/L Carbon Dioxide Level 29 21-32 mmol/L Anion Gap 9.0 3-11 mmol/L Blood Urea Nitrogen 18 7-18 mg/dl Creatinine 0.67 0.60-1.20 mg/dl Est Creatinine Clear Calc Drug Dose 116.2 ml/min Estimated GFR () 132.9 Estimated GFR (Non- 114.7 BUN/Creatinine Ratio 27.1 10-20 Random Glucose 89 70-99 mg/dl Calcium Level 7.7 8.5-10.1 mg/dl Magnesium Level 2.7 1.8-2.4 mg/dl Total Bilirubin 0.5 0.2-1 mg/dl Aspartate Amino Transf (AST/SGOT) 19 15-37 U/L Alanine Aminotransferase (ALT/SGPT) 15 12-78 U/L Alkaline Phosphatase 77 45-117 U/L Total Protein 5.2 6.4-8.2 gm/dl Albumin 1.8 3.4-5.0 gm/dl Globulin 3.4 2.5-4.0 gm/dl Albumin/Globulin Ratio 0.5 0.9-2 Diagnostic Radiology KUB-IMPRESSION: Postoperative nonobstructive ileus. Negative chest. Impression Assessment and Plan IMP post-op ileus stop NG suction, should do lower suction if pt starts N/V. NPO now repeat CBC in AM will F/U Thanks Advanced Directives Existing Advance Directive: No Existing Living Will: No Existing Power of Powder Expert: No VTE Prophylaxis VTE Risk Assessment Done? Y/N: Yes Risk Level: Low
[2016-11-25 11:01] LABS: POTASSIUM 3.3 mmol/L (3.5-5.1)
[2016-11-25 11:20] VITALS: BP 113/72; PULSE 62; TEMP 36.7; O2SAT 97
[2016-11-25] MEDS ORDERED: LACTATED RINGER'S 1000ML 1,000 ML IV SCH ×2 (14:00→22:45)
[2016-11-25] MEDS ORDERED: COUGH DROP (SUGAR FREE) LOZ 24 LOZ/1 BOX PO PRN (14:00)
[2016-11-25] MEDS ORDERED: CHLORASEPTIC 1.4% SOLN 180 ML BTL MT PRN (14:00)
--- NOTE | 2016-11-25 14:02 | OB/GYN Progress Note ---
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 Patient is reevaluated She feels well other than throat irritation from NGT No N&V or abdominal pain Ambulating, voiding BM+ loose,x4 this morning Last 8 Hrs Date Time Temp Pulse Resp B/P Pulse Ox O2 Delivery O2 Flow Rate FiO2 11/25/16 08:00 36.7 72 18 115/79 97 Room Air 11/25/16 08:00 Room Air Last 24 Hours Test 11/25/16 10:10 White Blood Count 4.31 K/uL Red Blood Count 2.98 M/uL Hemoglobin 8.6 g/dL Hematocrit 25.2 % Mean Corpuscular Volume 84.6 fL Mean Corpuscular Hemoglobin 28.9 pg Mean Corpuscular Hemoglobin Concent 34.1 g/dl Platelet Count 236 K/uL Mean Platelet Volume 8.6 fL Neutrophils (%) (Auto) 71.0 % Lymphocytes (%) (Auto) 15.1 % Monocytes (%) (Auto) 12.3 % Eosinophils (%) (Auto) 1.2 % Basophils (%) (Auto) 0.2 % Neutrophils # (Auto) 3.06 K/uL Lymphocytes # (Auto) 0.65 K/uL Monocytes # (Auto) 0.53 K/uL Eosinophils # (Auto) 0.05 K/uL Basophils # (Auto) 0.01 K/uL RDW Standard Deviation 46.1 fL RDW Coefficient of Variation 14.9 % Immature Granulocyte % (Auto) 0.2 % Immature Granulocyte # (Auto) 0.01 K/uL Red Blood Cell Morphology Unremarkable Sodium Level 142 mmol/L Potassium Level 3.3 mmol/L Chloride Level 105 mmol/L Carbon Dioxide Level 24 mmol/L Anion Gap 13.0 mmol/L VSS Afebrile WBCC not elevated Plan keep NGT clamped until am per G.Surgery Throat lozenges Continue to monitor closely
[2016-11-25 15:50] VITALS: BP 115/76; PULSE 67; TEMP 36.5; O2SAT 98
[2016-11-25] MEDS: KETOROLAC TROMETHAMINE 30 MG/ML VIAL IV. PRN (18:49)
[2016-11-25 19:55] VITALS: BP 112/73; PULSE 70; TEMP 36.7; O2SAT 98
--- NOTE | 2016-11-25 22:45 | OB/GYN Progress Note ---
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 Patient is reevaluated She feels better No N&V or abdominal pain Ambulating, voiding, dark urine BM+ loose, C Diff negative VSS Afebrile 8-Hour Column 11/24/16 11/25/16 11/25/16 16:00 00:00 08:00 Intake Total 1125 ml 431 ml 957 ml Output Total 1550 ml 1300 ml 1700 ml Balance -425 ml -869 ml -743 ml 24-Hour Column 11/25/16 08:00 Intake Total 2513 ml Output Total 4550 ml Balance -2037 ml I>O Will give IVF bolus and continue with IVF rate Start sips of clears as tolerated tonight and D/C NGT in am per G.Surgery Continue to monitor
[2016-11-25 23:45] VITALS: BP 124/82; PULSE 70; TEMP 36.6; O2SAT 97
[2016-11-26] VITALS (7 sets, daily range): BP systolic 101–120; BP diastolic 67–85; PULSE 60–85; TEMP 36.5–37.2; O2SAT 97–99
[2016-11-26] MEDS: METOCLOPRAMIDE HCL INJ 5 MG/ML 2 ML VIAL IV. SCH ×4 (02:16→20:26)
[2016-11-26] MEDS: KETOROLAC TROMETHAMINE 30 MG/ML VIAL IV. PRN (03:32)
--- NOTE | 2016-11-26 06:26 | OB/GYN Progress Note ---
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 Patient is seen and examined She feel well, much better NGT was irritating her throat a lot and wanted it to be removed She ffels much better now No N&V since it was clamped yesterday am, none after it was taken out too Tolerating clears No fever/ chills/ abd pain/ leg pain Passing a lot of gas and Watery BM C diff neg VSS Afebrile CVS: S1S2 RRR Abd: soft, NT, mild distension better than before, BS+, Incision C/D/I Lochia minimal Ext: NT, no edema CBC pending AP: s/p C section, POD#6, postop ileus since 11/23, s/p NGT until this am, taken out per her request VSS Afebrile doing well NO N&V, moving bowels d/w Dr Whyte who is okay with NGT out and recommended to advance to full liquid diet Continue to monitor
[2016-11-26 07:00] LABS: EOS % 1.7 %; HEMATOCRIT 24.6 % (37-47); IG% 0.5 %; LYMPH ABS # 0.51 K/uL (1.2-3.4); MEAN CELL VOLUME 85.4 fL (80-100); MEAN CORPUSCULAR HEMOGLOBIN 29.2 pg (25-34); MEAN CORPUSCULAR HGB CONC 34.1 g/dl (32-36); MEAN PLATELET VOLUME 8.6 fL (7.4-10.4); MONO % 11.1 %; NEUT % 74.7 %; PLATELET COUNT 236 K/uL (130-400); RED BLOOD COUNT 2.88 M/uL (4.2-5.4); WHITE BLOOD COUNT 4.24 K/uL (4.8-10.8)
[2016-11-26 07:54] LABS: COMPLETE YES; ECHINOCYTES 1+; POLYCHROMASIA 1+
--- NOTE | 2016-11-26 07:59 | Surgery Progress Note ---
Surgery Progress Note Date of Service Nov 26, 2016. Subjective pt is doing fine, after removed NGT, pt has tolerated full liquid, no N/V, Objective Vital Signs: Date Time Temp Pulse Resp B/P Pulse Ox O2 Delivery O2 Flow Rate FiO2 11/26/16 03:25 36.5 80 16 116/78 99 Room Air 11/25/16 23:45 97 Room Air 11/25/16 23:45 36.6 70 16 124/82 97 Room Air 11/25/16 19:55 36.7 70 20 112/73 98 Room Air 11/25/16 15:50 36.5 67 20 115/76 98 Room Air 11/25/16 15:50 98 Room Air 11/25/16 11:20 36.7 62 16 113/72 97 Room Air 11/25/16 08:00 36.7 72 18 115/79 97 Room Air 11/25/16 08:00 Room Air General Appearance: WD/WN Head: normocephalic Neck: supple, no JVD Respiratory/Chest: chest non-tender, lungs clear Cardiovascular: regular rate, rhythm, no edema Abdomen: normal bowel sounds, non tender, non distended, soft Extremities: normal range of motion, non-tender, normal inspection Laboratory Results: Results Past 24 Hours Test 11/25/16 10:10 11/26/16 06:45 Range/Units White Blood Count 4.31 4.24 4.8-10.8 K/uL Red Blood Count 2.98 2.88 4.2-5.4 M/uL Hemoglobin 8.6 8.4 12.0-16.0 g/dL Hematocrit 25.2 24.6 37-47 % Mean Corpuscular Volume 84.6 85.4 80-100 fL Mean Corpuscular Hemoglobin 28.9 29.2 25-34 pg Mean Corpuscular Hemoglobin Concent 34.1 34.1 32-36 g/dl Platelet Count 236 236 130-400 K/uL Mean Platelet Volume 8.6 8.6 7.4-10.4 fL Neutrophils (%) (Auto) 71.0 74.7 % Lymphocytes (%) (Auto) 15.1 12.0 % Monocytes (%) (Auto) 12.3 11.1 % Eosinophils (%) (Auto) 1.2 1.7 % Basophils (%) (Auto) 0.2 0.0 % Neutrophils # (Auto) 3.06 3.17 1.4-6.5 K/uL Lymphocytes # (Auto) 0.65 0.51 1.2-3.4 K/uL Monocytes # (Auto) 0.53 0.47 0.11-0.59 K/uL Eosinophils # (Auto) 0.05 0.07 0-0.5 K/uL Basophils # (Auto) 0.01 0.00 0-0.2 K/uL RDW Standard Deviation 46.1 46.6 36.4-46.3 fL RDW Coefficient of Variation 14.9 14.8 11.5-14.5 % Immature Granulocyte % (Auto) 0.2 0.5 % Immature Granulocyte # (Auto) 0.01 0.02 0.00-0.02 K/uL Red Blood Cell Morphology Unremarkable Sodium Level 142 136-145 mmol/L Potassium Level 3.3 3.5-5.1 mmol/L Chloride Level 105 98-107 mmol/L Carbon Dioxide Level 24 21-32 mmol/L Anion Gap 13.0 3-11 mmol/L Polychromasia 1+ Echinocytes 1+ Microbiology Results 11/25/16 C.difficile Toxin B Gene (PCR) - Final, Complete No C. difficile toxin B gene detected Assessment & Plan IMP, S/P , ileus pt is doing fine, regular diet signed off today, please call if needed, Thanks,
[2016-11-26] MEDS: SIMETHICONE 80 MG CHEW PO SCH ×4 (08:00→19:37)
[2016-11-26] MEDS: PRENATAL VITAMIN TAB PO SCH (08:00)
[2016-11-26] MEDS: FERROUS SULFATE 325 MG TAB PO SCH ×2 (08:00→19:37)
[2016-11-26] MEDS: D5NSS + 20MEQ KCL 1,000 ML IV SCH ×3 (08:54→23:35)
--- NOTE | 2016-11-26 09:37 | Surgery Progress Note ---
Surgery Progress Note Date of Service Nov 26, 2016. Subjective Post OP Day: + ambulating, + diet, + feeling well, + flatus, + pain controlled Objective Vital Signs: Date Time Temp Pulse Resp B/P Pulse Ox O2 Delivery O2 Flow Rate FiO2 11/26/16 09:04 36.9 68 14 115/74 97 Room Air 11/26/16 03:25 36.5 80 16 116/78 99 Room Air 11/25/16 23:45 97 Room Air 11/25/16 23:45 36.6 70 16 124/82 97 Room Air 11/25/16 19:55 36.7 70 20 112/73 98 Room Air 11/25/16 15:50 36.5 67 20 115/76 98 Room Air 11/25/16 15:50 98 Room Air 11/25/16 11:20 36.7 62 16 113/72 97 Room Air Abdomen: non tender, soft, + distended Incision(s): clean, dry, intact Extremities: non-tender, normal inspection, no pedal edema, no calf tenderness Laboratory Results: Results Past 24 Hours Test 11/25/16 10:10 11/26/16 06:45 Range/Units White Blood Count 4.31 4.24 4.8-10.8 K/uL Red Blood Count 2.98 2.88 4.2-5.4 M/uL Hemoglobin 8.6 8.4 12.0-16.0 g/dL Hematocrit 25.2 24.6 37-47 % Mean Corpuscular Volume 84.6 85.4 80-100 fL Mean Corpuscular Hemoglobin 28.9 29.2 25-34 pg Mean Corpuscular Hemoglobin Concent 34.1 34.1 32-36 g/dl Platelet Count 236 236 130-400 K/uL Mean Platelet Volume 8.6 8.6 7.4-10.4 fL Neutrophils (%) (Auto) 71.0 74.7 % Lymphocytes (%) (Auto) 15.1 12.0 % Monocytes (%) (Auto) 12.3 11.1 % Eosinophils (%) (Auto) 1.2 1.7 % Basophils (%) (Auto) 0.2 0.0 % Neutrophils # (Auto) 3.06 3.17 1.4-6.5 K/uL Lymphocytes # (Auto) 0.65 0.51 1.2-3.4 K/uL Monocytes # (Auto) 0.53 0.47 0.11-0.59 K/uL Eosinophils # (Auto) 0.05 0.07 0-0.5 K/uL Basophils # (Auto) 0.01 0.00 0-0.2 K/uL RDW Standard Deviation 46.1 46.6 36.4-46.3 fL RDW Coefficient of Variation 14.9 14.8 11.5-14.5 % Immature Granulocyte % (Auto) 0.2 0.5 % Immature Granulocyte # (Auto) 0.01 0.02 0.00-0.02 K/uL Red Blood Cell Morphology Unremarkable Sodium Level 142 136-145 mmol/L Potassium Level 3.3 3.5-5.1 mmol/L Chloride Level 105 98-107 mmol/L Carbon Dioxide Level 24 21-32 mmol/L Anion Gap 13.0 3-11 mmol/L Polychromasia 1+ Echinocytes 1+ Microbiology Results 11/25/16 C.difficile Toxin B Gene (PCR) - Final, Complete No C. difficile toxin B gene detected Assessment & Plan regular diet POD#6 will repeat BMP today if no problems with diet possible d/c in AM
[2016-11-26 11:04] LABS: BUN/CREATININE RATIO 17.3 (10-20); CALCIUM 7.5 mg/dl (8.5-10.1); CREATININE 0.67 mg/dl (0.60-1.20); POTASSIUM 3.6 mmol/L (3.5-5.1)
[2016-11-26] MEDS ORDERED: NURSING VERBAL MED ORDER ONE ×2 (19:30→23:30)
[2016-11-26] MEDS ORDERED: KETOROLAC TROMETHAMINE 30 MG/ML VIAL IV. ONE (20:00)
--- NOTE | 2016-11-26 20:07 | DIAGNOSTIC IMAGING REPORT ---
CHEST AND ABDOMEN 2 VIEWS HISTORY: Rule out obstruction . Generalized abdominal pain. COMPARISON: Chest and abdominal series 11/23/2016. FINDINGS: Questionable nodule within the left upper lobe laterally favors overlapping clothing material. Otherwise, the lungs are clear. The heart is top normal in size. No pneumoperitoneum. No pneumatosis. Multiple dilated air-filled loops of large and small bowel seen throughout the abdomen. These contain multiple fluid levels. Dilated bowel appears similar to the prior study. Lower pelvic skin carlos are again noted. Soft tissue density within the lower pelvis persists. This may be due to the postoperative change. No significant gas identified within the distal sigmoid colon/rectum. IMPRESSION: Similar multiple dilated air-filled loops of large and small bowel seen throughout the abdomen. Soft tissue density within the lower pelvis persists and may be due to the postoperative change. There is no significant gas within the distal sigmoid colon/rectum. Therefore, the dilated loops of bowel could be due to a postoperative ileus or distal large bowel obstruction. Continued follow-up recommended. Electronically signed by: Felix Dillard M.D. 11/26/2016 8:06 PM Dictated Date/Time: 11/26/2016 8:01 PM
--- NOTE | 2016-11-26 21:03 | Surgery Progress Note ---
Surgery Progress Note Date of Service Nov 26, 2016. Subjective Post OP Day: + ambulating, + feeling well, + flatus, + pain controlled Objective Vital Signs: Date Time Temp Pulse Resp B/P Pulse Ox O2 Delivery O2 Flow Rate FiO2 11/26/16 16:35 37.0 85 20 120/85 Room Air 11/26/16 15:10 Room Air 11/26/16 12:35 36.7 72 16 101/67 99 Room Air 11/26/16 11:10 97 Room Air 11/26/16 09:04 36.9 68 14 115/74 97 Room Air 11/26/16 08:15 Room Air 11/26/16 03:25 36.5 80 16 116/78 99 Room Air 11/25/16 23:45 97 Room Air 11/25/16 23:45 36.6 70 16 124/82 97 Room Air General Appearance: + mild distress Abdomen: normal bowel sounds, non distended, soft Incision(s): clean, dry, intact Extremities: non-tender, normal inspection, no pedal edema Laboratory Results: Results Past 24 Hours Test 11/26/16 06:45 11/26/16 10:02 Range/Units White Blood Count 4.24 4.8-10.8 K/uL Red Blood Count 2.88 4.2-5.4 M/uL Hemoglobin 8.4 12.0-16.0 g/dL Hematocrit 24.6 37-47 % Mean Corpuscular Volume 85.4 80-100 fL Mean Corpuscular Hemoglobin 29.2 25-34 pg Mean Corpuscular Hemoglobin Concent 34.1 32-36 g/dl Platelet Count 236 130-400 K/uL Mean Platelet Volume 8.6 7.4-10.4 fL Neutrophils (%) (Auto) 74.7 % Lymphocytes (%) (Auto) 12.0 % Monocytes (%) (Auto) 11.1 % Eosinophils (%) (Auto) 1.7 % Basophils (%) (Auto) 0.0 % Neutrophils # (Auto) 3.17 1.4-6.5 K/uL Lymphocytes # (Auto) 0.51 1.2-3.4 K/uL Monocytes # (Auto) 0.47 0.11-0.59 K/uL Eosinophils # (Auto) 0.07 0-0.5 K/uL Basophils # (Auto) 0.00 0-0.2 K/uL RDW Standard Deviation 46.6 36.4-46.3 fL RDW Coefficient of Variation 14.8 11.5-14.5 % Immature Granulocyte % (Auto) 0.5 % Immature Granulocyte # (Auto) 0.02 0.00-0.02 K/uL Polychromasia 1+ Echinocytes 1+ Sodium Level 145 136-145 mmol/L Potassium Level 3.6 3.5-5.1 mmol/L Chloride Level 114 98-107 mmol/L Carbon Dioxide Level 25 21-32 mmol/L Anion Gap 6.0 3-11 mmol/L Blood Urea Nitrogen 12 7-18 mg/dl Creatinine 0.67 0.60-1.20 mg/dl Est Creatinine Clear Calc Drug Dose 116.2 ml/min Estimated GFR () 132.9 Estimated GFR (Non- 114.7 BUN/Creatinine Ratio 17.3 10-20 Random Glucose 110 70-99 mg/dl Calcium Level 7.5 8.5-10.1 mg/dl Assessment & Plan POD#6 will repeat CBC/lytes in AM repeat obstruction series in AM POD#6 will repeat BMP today if no problems with diet possible d/c in AM
[2016-11-27] MEDS ORDERED: KETOROLAC TROMETHAMINE 30 MG/ML VIAL IV. PRN (01:00)
[2016-11-27] MEDS: METOCLOPRAMIDE HCL INJ 5 MG/ML 2 ML VIAL IV. SCH ×3 (03:03→14:00)
[2016-11-27 03:45] VITALS: BP 108/69; PULSE 69; TEMP 37
[2016-11-27 05:28] LABS: MEAN CELL VOLUME 86.6 fL (80-100); MEAN CORPUSCULAR HEMOGLOBIN 28.5 pg (25-34); MEAN PLATELET VOLUME 9.1 fL (7.4-10.4); PLATELET COUNT 247 K/uL (130-400); RED BLOOD COUNT 2.77 M/uL (4.2-5.4)
[2016-11-27 05:34] LABS: MEAN CORPUSCULAR HGB CONC 32.9 g/dl (32-36)
[2016-11-27 06:06] LABS: BASO % 0.2 %; BASO ABS # 0.01 K/uL (0-0.2); COMPLETE YES; DOHLE BODIES 1+; EOS % 1.7 %; IG% 0.5 %; LYMPH % 17.5 %; LYMPH ABS # 1.03 K/uL (1.2-3.4); MONO % 9.7 %; NEUT % 70.4 %; POLYCHROMASIA 1+
[2016-11-27 06:16] LABS: POTASSIUM 3.6 mmol/L (3.5-5.1)
[2016-11-27] MEDS: D5NSS + 20MEQ KCL 1,000 ML IV SCH ×4 (07:31→21:21)
--- NOTE | 2016-11-27 08:00 | DIAGNOSTIC IMAGING REPORT ---
ABDOMEN 2 VIEWS CLINICAL HISTORY: Postop . Bowel obstruction. COMPARISON STUDY: Abdominal series dated to 217 FINDINGS: Supine and erect views the abdomen are provided for interpretation. There is gas present within both colon and small bowel loops. There are multiple air-fluid levels present on the erect study. There is a possibility of gas within the lower pelvis. No free air is visualized. There is decreased bowel distention when compared the prior study. IMPRESSION: Multiple air-fluid levels similar to the preceding study. There continues to be a paucity of gas within the lower pelvis. Once again the findings could be secondary to a postoperative ileus or distal colonic obstruction. There does appear to be decreased distention of the bowel as compared with the prior study. Electronically signed by: Damon Tomlinson M.D. 11/27/2016 7:58 AM Dictated Date/Time: 11/27/2016 7:55 AM
[2016-11-27 08:35] VITALS: BP 107/72; PULSE 55; TEMP 37.3; O2SAT 98
[2016-11-27] MEDS: FERROUS SULFATE 325 MG TAB PO SCH ×2 (08:47→20:00)
[2016-11-27] MEDS: PRENATAL VITAMIN TAB PO SCH (08:47)
[2016-11-27] MEDS: SIMETHICONE 80 MG CHEW PO SCH ×4 (08:47→20:01)
--- NOTE | 2016-11-27 08:59 | OB/GYN Progress Note ---
[facility] Progress Note Date of Service: Nov 27, 2016. Patient is seen and examined. She feels beter compared to last night. She had N&Vx2 yesterday. Last time was after she ate light dinner at 430 om. No N&V since then. She has not been eating since then. She had more abdominal pain last night and was put NPO No Pain in incision. Ambulating without dizziness Voiding without difficulty Flatus + lots, BM + every time she goes to , diarrhea but more formed Bleeding is minimal No fever/ chills/ CP/ SOB/ N&V/ Leg pain Date Time Temp Pulse Resp B/P Pulse Ox O2 Delivery O2 Flow Rate FiO2 11/27/16 03:45 37.0 69 16 108/69 Room Air 11/26/16 23:35 36.9 66 16 112/72 Room Air 11/26/16 23:35 Room Air 11/26/16 20:35 37.2 60 16 118/75 99 Room Air 11/26/16 20:35 99 Room Air 11/26/16 16:35 37.0 85 20 120/85 Room Air 11/26/16 15:10 Room Air 11/26/16 12:35 36.7 72 16 101/67 99 Room Air 11/26/16 11:10 97 Room Air 11/26/16 09:04 36.9 68 14 115/74 97 Room Air Last 24 Hours Test 11/26/16 10:02 11/27/16 04:56 Sodium Level 145 mmol/L 148 mmol/L Potassium Level 3.6 mmol/L 3.6 mmol/L Chloride Level 114 mmol/L 119 mmol/L Carbon Dioxide Level 25 mmol/L 20 mmol/L Anion Gap 6.0 mmol/L 9.0 mmol/L Blood Urea Nitrogen 12 mg/dl Creatinine 0.67 mg/dl Est Creatinine Clear Calc Drug Dose 116.2 ml/min Estimated GFR () 132.9 Estimated GFR (Non- 114.7 BUN/Creatinine Ratio 17.3 Random Glucose 110 mg/dl Calcium Level 7.5 mg/dl White Blood Count 5.90 K/uL Red Blood Count 2.77 M/uL Hemoglobin 7.9 g/dL Hematocrit 24.0 % Mean Corpuscular Volume 86.6 fL Mean Corpuscular Hemoglobin 28.5 pg Mean Corpuscular Hemoglobin Concent 32.9 g/dl Platelet Count 247 K/uL Mean Platelet Volume 9.1 fL Neutrophils (%) (Auto) 70.4 % Lymphocytes (%) (Auto) 17.5 % Monocytes (%) (Auto) 9.7 % Eosinophils (%) (Auto) 1.7 % Basophils (%) (Auto) 0.2 % Neutrophils # (Auto) 4.16 K/uL Lymphocytes # (Auto) 1.03 K/uL Monocytes # (Auto) 0.57 K/uL Eosinophils # (Auto) 0.10 K/uL Basophils # (Auto) 0.01 K/uL RDW Standard Deviation 46.9 fL RDW Coefficient of Variation 14.9 % Immature Granulocyte % (Auto) 0.5 % Immature Granulocyte # (Auto) 0.03 K/uL Dohle Bodies 1+ Polychromasia 1+ Abd XR: improved gas pattern PE: General: Alert, orientedx3, NAD CVS: S1S2 RRR Lungs; CTAB Abd: soft, NT, fundus firm, below Umbilicus, distended+ Incision: Clean, dry, intact Perineum intact, Lochia rubra minimal Ext; NT, no edema AP: 36 yo s/p C Section, pod# 7 Postop ileus VSS Afebrile doing well Discussed the case with Dr. Whyte who originally saw her on 11/25, recommended CT of abd/ pelvis with IV and Oral contrast then call surgery extrusion supervisor Continue to monitor closely Will sign to Dr. Mirza who is extrusion supervisor today
[2016-11-27] MEDS ORDERED: OPTIRAY 320 IV PRN (09:15)
--- NOTE | 2016-11-27 09:46 | Surgery Progress Note ---
Surgery Progress Note Date of Service Nov 27, 2016. Subjective Post OP Day: 9 treated for ileus s/p 7 days ago, NG placed on Wednesday, clamped on and removed AM. Had breakfast, oatmeal, fruit and N/V later in the day. Has had increasing flatus and multiple loose BMs. No nausea this AM. Objective Vital Signs: Date Time Temp Pulse Resp B/P Pulse Ox O2 Delivery O2 Flow Rate FiO2 11/27/16 03:45 37.0 69 16 108/69 Room Air 11/26/16 23:35 36.9 66 16 112/72 Room Air 11/26/16 23:35 Room Air 11/26/16 20:35 37.2 60 16 118/75 99 Room Air 11/26/16 20:35 99 Room Air 11/26/16 16:35 37.0 85 20 120/85 Room Air 11/26/16 15:10 Room Air 11/26/16 12:35 36.7 72 16 101/67 99 Room Air 11/26/16 11:10 97 Room Air General Appearance: WD/WN, no apparent distress Abdomen: soft (, active bowel sounds) Laboratory Results: Results Past 24 Hours Test 11/26/16 10:02 11/27/16 04:56 Range/Units Sodium Level 145 148 136-145 mmol/L Potassium Level 3.6 3.6 3.5-5.1 mmol/L Chloride Level 114 119 98-107 mmol/L Carbon Dioxide Level 25 20 21-32 mmol/L Anion Gap 6.0 9.0 3-11 mmol/L Blood Urea Nitrogen 12 7-18 mg/dl Creatinine 0.67 0.60-1.20 mg/dl Est Creatinine Clear Calc Drug Dose 116.2 ml/min Estimated GFR () 132.9 Estimated GFR (Non- 114.7 BUN/Creatinine Ratio 17.3 10-20 Random Glucose 110 70-99 mg/dl Calcium Level 7.5 8.5-10.1 mg/dl White Blood Count 5.90 4.8-10.8 K/uL Red Blood Count 2.77 4.2-5.4 M/uL Hemoglobin 7.9 12.0-16.0 g/dL Hematocrit 24.0 37-47 % Mean Corpuscular Volume 86.6 80-100 fL Mean Corpuscular Hemoglobin 28.5 25-34 pg Mean Corpuscular Hemoglobin Concent 32.9 32-36 g/dl Platelet Count 247 130-400 K/uL Mean Platelet Volume 9.1 7.4-10.4 fL Neutrophils (%) (Auto) 70.4 % Lymphocytes (%) (Auto) 17.5 % Monocytes (%) (Auto) 9.7 % Eosinophils (%) (Auto) 1.7 % Basophils (%) (Auto) 0.2 % Neutrophils # (Auto) 4.16 1.4-6.5 K/uL Lymphocytes # (Auto) 1.03 1.2-3.4 K/uL Monocytes # (Auto) 0.57 0.11-0.59 K/uL Eosinophils # (Auto) 0.10 0-0.5 K/uL Basophils # (Auto) 0.01 0-0.2 K/uL RDW Standard Deviation 46.9 36.4-46.3 fL RDW Coefficient of Variation 14.9 11.5-14.5 % Immature Granulocyte % (Auto) 0.5 % Immature Granulocyte # (Auto) 0.03 0.00-0.02 K/uL Dohle Bodies 1+ Polychromasia 1+ Diagnostic Interpretation: XR show significantly less small bowel distention and increasing colonic gas from last evening to this AM Assessment & Plan ileus Bowel function is increasing and XR are improved. She is drinking contrast for CT around noon. Unless there is an unexpected finding on CT, can probably resume liquid diet this afternoon and consider restarting soft diet tomorrow.
--- NOTE | 2016-11-27 10:34 | Surgery Progress Note ---
Surgery Progress Note Date of Service Nov 27, 2016. Subjective pt had 2 times vomiting yesterday, and some diarrhea, pt denies abdominal pain, no fever, now pt feels better, no N/V, Objective Vital Signs: Date Time Temp Pulse Resp B/P Pulse Ox O2 Delivery O2 Flow Rate FiO2 11/27/16 08:35 Room Air 11/27/16 08:35 37.3 55 16 107/72 98 Room Air 11/27/16 03:45 37.0 69 16 108/69 Room Air 11/26/16 23:35 36.9 66 16 112/72 Room Air 11/26/16 23:35 Room Air 11/26/16 20:35 37.2 60 16 118/75 99 Room Air 11/26/16 20:35 99 Room Air 11/26/16 16:35 37.0 85 20 120/85 Room Air 11/26/16 15:10 Room Air 11/26/16 12:35 36.7 72 16 101/67 99 Room Air 11/26/16 11:10 97 Room Air General Appearance: WD/WN Head: normocephalic Neck: supple, no adenopathy Respiratory/Chest: chest non-tender, lungs clear Cardiovascular: regular rate, rhythm, no edema, no gallop, no JVD Abdomen: normal bowel sounds, non tender, non distended, soft Incision(s): clean, dry Extremities: normal range of motion, non-tender, normal inspection Laboratory Results: Results Past 24 Hours Test 11/27/16 04:56 Range/Units White Blood Count 5.90 4.8-10.8 K/uL Red Blood Count 2.77 4.2-5.4 M/uL Hemoglobin 7.9 12.0-16.0 g/dL Hematocrit 24.0 37-47 % Mean Corpuscular Volume 86.6 80-100 fL Mean Corpuscular Hemoglobin 28.5 25-34 pg Mean Corpuscular Hemoglobin Concent 32.9 32-36 g/dl Platelet Count 247 130-400 K/uL Mean Platelet Volume 9.1 7.4-10.4 fL Neutrophils (%) (Auto) 70.4 % Lymphocytes (%) (Auto) 17.5 % Monocytes (%) (Auto) 9.7 % Eosinophils (%) (Auto) 1.7 % Basophils (%) (Auto) 0.2 % Neutrophils # (Auto) 4.16 1.4-6.5 K/uL Lymphocytes # (Auto) 1.03 1.2-3.4 K/uL Monocytes # (Auto) 0.57 0.11-0.59 K/uL Eosinophils # (Auto) 0.10 0-0.5 K/uL Basophils # (Auto) 0.01 0-0.2 K/uL RDW Standard Deviation 46.9 36.4-46.3 fL RDW Coefficient of Variation 14.9 11.5-14.5 % Immature Granulocyte % (Auto) 0.5 % Immature Granulocyte # (Auto) 0.03 0.00-0.02 K/uL Dohle Bodies 1+ Polychromasia 1+ Sodium Level 148 136-145 mmol/L Potassium Level 3.6 3.5-5.1 mmol/L Chloride Level 119 98-107 mmol/L Carbon Dioxide Level 20 21-32 mmol/L Anion Gap 9.0 3-11 mmol/L Assessment & Plan IMP, S/P , ileus I recommend to do CT scan abd + pelvis with po and IV contrast, to R/O intraabdominal hematoma GI consult for diarrhea DR. Paez will F/U this pt this weekend. D/W OBG-YN superintendent operations division doctor, Thanks, full liquids IMP, S/P , ileus pt is doing fine, regular diet signed off today, please call if needed, Thanks,
--- NOTE | 2016-11-27 12:49 | Gastrointestinal Consultation ---
Gastrointestinal Consultation Date of Consultation: Nov 27, 2016 Attending Physician: Dr. Guy Consulting Physician: Dr. Hill Reason for Consultation: Post op ileu History of Present Illness Patient is a 36 year old female of Dr. Patel with an otherwise unremarkable PMH who underwent on Monday 11/20 after a day of Pitocin induction. For the next few days, she had abdominal distention, lack of flatus or BMs. Then on Monday 11/13 because of increased abdominal pain and nausea, NG was placed. She had an initial BM after a suppository on 11/25 and the NG was removed on morning. She continued to feel nasueated and a few hrs after removal of the NG, she vomited. She has been NPO since late yesterday and she just completed a CT scan. She has not felt nauseated this morning. She was able to complete the oral prep for the CT. Though she has had a poor appetite, today she started feel hungry again. She had about 5 loose to liquid BMs yesterday and again today. No melena or hematochezia. C-diff was (-). She has not had leukocytosis or fevers. She has been anemic and received 2 units of blood. There was approx 1L blood loss during the C-sec during which endometriosis was found. The patient is seen and examined while she is resting in bed in the maternity kemp. She is awake, alert, able to ambulate, continues to feel bloated but reports feeling much better today compared to previous days. Past Medical/Surgical History Medical Problems: (1) Ovarian mass Status: Acute (2) Ovarian mass, left Status: Acute (3) Ovarian mass, right Status: Acute (4) Terminal ileitis Status: Acute Past Medical History: Unremarkable. Past Surgical History: on 11/20/16. Family History Patient reports no known family medical history. Social History Smoking Status: Never Smoker Drug Use: none Marital Status: Occupation Status: employed Allergies Coded Allergies: No Known Allergies (Unverified , 11/20/16) Current Medications Home Meds and Scripts Medications Dose Route/Sig Max Daily Dose Days Date Category Multivitamin (Multivitamins) Tab 1 Tab PO QAM 11/09/16 Reported Review of Systems Constitutional: No chills, No fever, No sweats, No weakness, No weight loss Eyes: No eye pain, No redness ENT: No pain on swallowing, No sore throat, No trouble swallowing Respiratory: No cough, No dyspnea on exertion, No shortness of breath, No wheezing Cardiac: No chest pain, No edema, No palpitations Abdomen: + diarrhea, + nausea, + pain, + see HPI, + vomiting Neuro: No balance problems, No memory loss, No numbness/tingling, No vertigo, No weakness Psych: No anxiety, No depression symptoms, No insomnia Heme: No abnormal bleeding/bruising, No night sweats Endo: No excessive thirst, No excessive urination Skin: No itch, No jaundice, No new/changing skin lesions, No rash Physical Exam Date Time Temp Pulse Resp B/P Pulse Ox O2 Delivery O2 Flow Rate FiO2 11/27/16 08:35 Room Air 11/27/16 08:35 37.3 55 16 107/72 98 Room Air 11/27/16 03:45 37.0 69 16 108/69 Room Air 11/26/16 23:35 36.9 66 16 112/72 Room Air 11/26/16 23:35 Room Air 11/26/16 20:35 37.2 60 16 118/75 99 Room Air 11/26/16 20:35 99 Room Air 11/26/16 16:35 37.0 85 20 120/85 Room Air 11/26/16 15:10 Room Air General Appearance: no apparent distress Eyes: normal inspection, EOMI Neck: supple, no adenopathy, thyroid normal Respiratory/Chest: chest non-tender, lungs clear, normal breath sounds, no accessory muscle use Cardiovascular: regular rate, rhythm, no JVD, no murmur Abdomen: normal bowel sounds, non tender, soft, no organomegaly, + pertinent finding (normal post abdominal exam. Staple line well approx w/o any discharge. ) Extremities: normal inspection, no pedal edema, normal capillary refill Neurologic/Psych: alert, normal mood/affect, oriented x 3 Skin: normal color, no jaundice, warm/dry, no rash Laboratory Results Last 24 Hours Test 11/27/16 04:56 White Blood Count 5.90 K/uL Red Blood Count 2.77 M/uL Hemoglobin 7.9 g/dL Hematocrit 24.0 % Mean Corpuscular Volume 86.6 fL Mean Corpuscular Hemoglobin 28.5 pg Mean Corpuscular Hemoglobin Concent 32.9 g/dl Platelet Count 247 K/uL Mean Platelet Volume 9.1 fL Neutrophils (%) (Auto) 70.4 % Lymphocytes (%) (Auto) 17.5 % Monocytes (%) (Auto) 9.7 % Eosinophils (%) (Auto) 1.7 % Basophils (%) (Auto) 0.2 % Neutrophils # (Auto) 4.16 K/uL Lymphocytes # (Auto) 1.03 K/uL Monocytes # (Auto) 0.57 K/uL Eosinophils # (Auto) 0.10 K/uL Basophils # (Auto) 0.01 K/uL RDW Standard Deviation 46.9 fL RDW Coefficient of Variation 14.9 % Immature Granulocyte % (Auto) 0.5 % Immature Granulocyte # (Auto) 0.03 K/uL Dohle Bodies 1+ Polychromasia 1+ Sodium Level 148 mmol/L Potassium Level 3.6 mmol/L Chloride Level 119 mmol/L Carbon Dioxide Level 20 mmol/L Anion Gap 9.0 mmol/L Impression Patient is a 36 year old female with post op ileus then nausea/vomiting. Her CT scan was w/o significant ileus and her symptoms seem much improved today. Plan 1. Agree with continuing the Reglan, but would stop on DC. 2. Agree with continue Zofran on a prn basis. 3. Would replace potassium to 4.0. 4. Would restart clear liquids for lunch, if does well, full liquids for supper and a soft consistency for breakfast. I have seen , examined and agree with the plan as outlined by STEVEN Brady as above. -exam reveals soft abd -CT with suggestions of angioedema with thick walled small bowel which could be infectious vs inflammatory, possible hereditary or allergic. -advance diet slowly and continue to monitor. -will follow along
--- NOTE | 2016-11-27 14:00 | DIAGNOSTIC IMAGING REPORT ---
CT SCAN OF THE ABDOMEN AND PELVIS WITH IV CONTRAST CLINICAL HISTORY: Postoperative examination. Recent section. Generalized abdominal pain/ileus. COMPARISON STUDY: Abdominal CT dated 12/19/15. TECHNIQUE: Following the IV administration of 93 cc of Optiray 320, CT scan of the abdomen and pelvis is performed from the lung bases to the proximal femora. Images are reviewed in the axial, sagittal, and coronal planes. IV contrast was administered without complication. Automated dose control exposure was utilized. CT DOSE: 838.65 mGycm FINDINGS: Lung bases: The heart is normal in size and without pericardial effusion. A calcified granuloma is present at the right lung base. There are trace pleural effusions. Calcified right hilar lymph nodes are partially visualized. Liver: The contrast-enhanced liver is normal in size, contour, and attenuation. There is no intrahepatic biliary ductal dilatation. The hepatic veins and portal veins are patent. Periportal edema is noted. A 2.4 cm lesion in the left lobe is unchanged and typical in appearance for a hemangioma. Gallbladder: Unremarkable. Spleen: The spleen is mildly enlarged measuring 14 cm in length. Pancreas: Unremarkable. Adrenal glands: Unremarkable. Kidneys: The contrast enhanced kidneys are normal in size and without hydronephrosis. Both kidneys demonstrate heterogeneous enhancement. Abdominal vasculature: The abdominal aorta is normal in course and caliber. Bowel: The small bowel mucosa appears diffusely thickened and hyperemic. The small bowel loops are distended, measuring up to 4 cm in diameter. There is no transition point or evidence of bowel obstruction.. The appendix is well-visualized and normal. Peritoneum: There is a small volume of perihepatic ascites. Trace fluid is also seen tracking along the mesentery. No intraperitoneal free air is seen. Subcutaneous induration and skin clips are present in the ventral pelvic wall, likely related to recent surgery. Lymphadenopathy: None. Pelvic viscera: The postgravid uterus is markedly enlarged and heterogeneous. Fluid is present within the endometrial canal. No adnexal lesion is seen. The bladder is decompressed but appears mildly thick walled. There is a large and centrally necrotic. Automated fibroid arising from the left fundal region seen on axial image number #261. This measures roughly 6 x 5 cm and likely represents an involuting/infarcting fibroid. Skeletal structures: No lytic or blastic lesions are seen. IMPRESSION: 1. Findings are consistent with angioedema of the small bowel. No bowel obstruction is identified. 2. There is a small volume of abdominal ascites. 3. Trace pleural effusions. 4. The postgravid uterus is markedly enlarged and heterogeneous. There is fluid within the endometrial canal, and this likely represents normal post-gestational change. Superimposed endometritis would be impossible to exclude by imaging. Clinical correlation will be required. 5. Suspect a large infarcting/involuting centrally necrotic pedunculated fibroid arising from the left uterine fundus. A small exophytic fibroid was seen at this site on the 12/19/2015 examination. 6. Additional changes as above. Electronically signed by: Milton Kay M.D. 11/27/2016 1:58 PM Dictated Date/Time: 11/27/2016 1:44 PM
[2016-11-27] MEDS ORDERED: NURSING VERBAL MED ORDER ONE (14:45)
--- NOTE | 2016-11-27 15:32 | Surgery Progress Note ---
Surgery Progress Note Date of Service Nov 27, 2016. Subjective + feeling well pt had CT Scan-IMPRESSION: 1. Findings are consistent with angioedema of the small bowel. No bowel obstruction is identified. 2. There is a small volume of abdominal ascites. 3. Trace pleural effusions. 4. The postgravid uterus is markedly enlarged and heterogeneous. There is fluid within the endometrial canal, and this likely represents normal post-gestational change. Superimposed endometritis would be impossible to exclude by imaging. Clinical correlation will be required. 5. Suspect a large infarcting/involuting centrally necrotic pedunculated fibroid arising from the left uterine fundus. A small exophytic fibroid was seen at this site on the 12/19/2015 examination. pt is doing better, no abdominal, no N/V, Objective Vital Signs: Date Time Temp Pulse Resp B/P Pulse Ox O2 Delivery O2 Flow Rate FiO2 11/27/16 08:35 Room Air 11/27/16 08:35 37.3 55 16 107/72 98 Room Air 11/27/16 03:45 37.0 69 16 108/69 Room Air 11/26/16 23:35 36.9 66 16 112/72 Room Air 11/26/16 23:35 Room Air 11/26/16 20:35 37.2 60 16 118/75 99 Room Air 11/26/16 20:35 99 Room Air 11/26/16 16:35 37.0 85 20 120/85 Room Air General Appearance: WD/WN Abdomen: normal bowel sounds, non tender Laboratory Results: Results Past 24 Hours Test 11/27/16 04:56 Range/Units White Blood Count 5.90 4.8-10.8 K/uL Red Blood Count 2.77 4.2-5.4 M/uL Hemoglobin 7.9 12.0-16.0 g/dL Hematocrit 24.0 37-47 % Mean Corpuscular Volume 86.6 80-100 fL Mean Corpuscular Hemoglobin 28.5 25-34 pg Mean Corpuscular Hemoglobin Concent 32.9 32-36 g/dl Platelet Count 247 130-400 K/uL Mean Platelet Volume 9.1 7.4-10.4 fL Neutrophils (%) (Auto) 70.4 % Lymphocytes (%) (Auto) 17.5 % Monocytes (%) (Auto) 9.7 % Eosinophils (%) (Auto) 1.7 % Basophils (%) (Auto) 0.2 % Neutrophils # (Auto) 4.16 1.4-6.5 K/uL Lymphocytes # (Auto) 1.03 1.2-3.4 K/uL Monocytes # (Auto) 0.57 0.11-0.59 K/uL Eosinophils # (Auto) 0.10 0-0.5 K/uL Basophils # (Auto) 0.01 0-0.2 K/uL RDW Standard Deviation 46.9 36.4-46.3 fL RDW Coefficient of Variation 14.9 11.5-14.5 % Immature Granulocyte % (Auto) 0.5 % Immature Granulocyte # (Auto) 0.03 0.00-0.02 K/uL Dohle Bodies 1+ Polychromasia 1+ Sodium Level 148 136-145 mmol/L Potassium Level 3.6 3.5-5.1 mmol/L Chloride Level 119 98-107 mmol/L Carbon Dioxide Level 20 21-32 mmol/L Anion Gap 9.0 3-11 mmol/L Assessment & Plan IMP, S/P , ileus I reviewed CT scan, no surgical issues now, DR. Paez will F/U this pt this weekend Thanks, IMP, S/P , ileus I recommend to do CT scan abd + pelvis with po and IV contrast, to R/O intraabdominal hematoma GI consult for diarrhea DR. Paez will F/U this pt this weekend. D/W OBG-YN continuity tester doctor, Thanks,
[2016-11-27 16:05] VITALS: BP 122/81; PULSE 57; TEMP 36.7; O2SAT 100
[2016-11-27] MEDS: ONDANSETRON INJ 2 MG/ML 2 ML VIAL IV PRN (18:08)
[2016-11-27 23:15] VITALS: BP 124/78; PULSE 75; TEMP 36.9; O2SAT 96
[2016-11-28] MEDS: D5NSS + 20MEQ KCL 1,000 ML IV SCH ×2 (04:45→14:57)
--- NOTE | 2016-11-28 07:32 | Gastroenterology Progress Note ---
Progress Note Date of Service: Nov 28, 2016 Subjective Pt evaluation today including: conversation w/ patient, physical exam Patient with persistent nausea, tolerating a liquid diet. She denies having any recent emesis or worsening pain. She is still having loose/liquid bowel movements (5-6 per day) Review of Systems Constitutional: No fever, No sweats Respiratory: No cough, No dyspnea at rest, No wheezing Cardiac: No PND, No chest pain, No palpitations Abdomen: No acolic stools, No constipation, No dysphagia, No vomiting Medications Current Inpatient Medications Medications (Trade) Dose Ordered Sig/Lloyd Route Start Time Stop Time Status Last Admin Dose Admin Oxytocin (Pitocin IV) 30 units UD PRN IV 11/20/16 07:45 12/20/16 07:44 11/20/16 08:19 30 UNITS Oxycodone/ Acetaminophen (Percocet 5-325mg Tab) 1 tab Q4H PRN PO 11/21/16 15:00 12/05/16 14:59 11/23/16 01:01 1 TAB Oxycodone/ Acetaminophen (Percocet 5-325mg Tab) 2 tab Q4H PRN PO 11/21/16 15:00 12/05/16 14:59 Ibuprofen (Motrin Tab) 600 mg Q4H PRN PO 11/20/16 23:00 12/20/16 22:59 11/23/16 01:00 600 MG Ondansetron HCl (Zofran Inj) 4 mg Q4H PRN IV 11/21/16 15:00 12/21/16 14:59 11/27/16 18:08 4 MG Prenat Multivit/ [place]/Iron/Folic Ac ( Vitamin Tab) 1 tab DAILY PO 11/21/16 08:00 12/21/16 07:59 11/22/16 09:10 1 TAB Cocaine HCl (Supercream 0.870% Cr) BID PRN EXT 11/20/16 23:00 12/04/16 22:59 Lanolin (Lanolin Oint) PRN PRN EXT 11/20/16 23:00 12/20/16 22:59 Hydrocortisone Acetate (Anusol Hc Supp) 25 mg BID PRN ND 11/20/16 23:00 12/20/16 22:59 Benzocaine (Dermoplast Aero Spr) 1 appln PRN PRN EXT 11/20/16 23:00 12/20/16 22:59 Simethicone (Mylicon Chew Tab) 80 mg QID PO 11/21/16 08:00 12/21/16 08:59 11/27/16 20:01 80 MG Diphenhydramine HCl (Benadryl Cap) 25 mg QID PRN PO 11/21/16 15:00 12/21/16 14:59 Senna (Senokot Tab) 17.2 mg HS PRN PO 11/20/16 23:00 12/20/16 22:59 Morphine Sulfate (Duramorph Pf Inj) TODAY PRN EPI 11/20/16 23:00 Ferrous Sulfate (Feosol Tab) 325 mg BID PO 11/21/16 20:00 12/21/16 19:59 11/22/16 20:10 325 MG Benzocaine/ Butamben/ Tetracaine HCl 1 appln 1 appln Q2H PRN EXT 11/23/16 14:15 12/23/16 14:14 11/25/16 08:37 1 APPLN Potassium Chloride/Dextrose/ Sod Cl 1,000 ml @ 150 mls/hr Q6H40M IV 11/25/16 09:45 12/25/16 09:44 11/28/16 04:45 150 MLS/HR Lactated Ringer's (Lr 1000ml) 1,000 ml @ 999 mls/hr Q1H1M IV 11/25/16 14:00 12/25/16 13:59 11/25/16 09:25 999 MLS/HR Phenol (Chloraseptic 1.4% [place]) 2 sprays Q2HWA PRN MT 11/25/16 14:00 12/25/16 13:59 11/25/16 14:15 2 SPRAYS Menthol (Nice Emma) 1 emma Q2HWA PRN PO 11/25/16 14:00 12/25/16 13:59 11/25/16 14:15 1 EMMA Ketorolac Tromethamine (Toradol Inj) 30 mg Q6H PRN IV. 11/27/16 01:00 12/02/16 00:59 Ioversol (Optiray 320) 111 ml UD PRN IV 11/27/16 09:15 12/01/16 09:14 Objective Vital Signs Date Time Temp Pulse Resp B/P Pulse Ox O2 Delivery O2 Flow Rate FiO2 11/27/16 23:15 36.9 75 16 124/78 96 Room Air 11/27/16 23:15 96 Room Air 11/27/16 16:05 Room Air 11/27/16 16:05 36.7 57 16 122/81 100 Room Air 11/27/16 08:35 Room Air 11/27/16 08:35 37.3 55 16 107/72 98 Room Air Physical Exam General Appearance: no apparent distress Eyes: PERRL Neck: no JVD Respiratory/Chest: lungs clear Cardiovascular: regular rate, rhythm Abdomen: soft, + tenderness (mild tenderness in the low abdomen) Extremities: no pedal edema Neurologic/Psych: oriented x 3 Skin: no jaundice Laboratory Results Last 24 Hours Test 11/28/16 06:14 Assessment and Plan Patient s/p a C section last week found to have evidence of "angioedema" on a recent CT scan. As this time there is no clear etiology and I would suggest a continued liquid diet until nausea improves. I would suggest screening for a hereditary form of angioedena (C-1 esterase) Recomendation Liquid diet if symptoms worsen consider referral to a tertiary center screen for c-1 esterase deficiency
[2016-11-28] MEDS: FERROUS SULFATE 325 MG TAB PO SCH ×2 (08:00→20:00)
[2016-11-28] MEDS: SIMETHICONE 80 MG CHEW PO SCH ×3 (08:00→19:36)
[2016-11-28] MEDS: PRENATAL VITAMIN TAB PO SCH (08:00)
[2016-11-28] MEDS: ONDANSETRON INJ 2 MG/ML 2 ML VIAL IV PRN (08:43)
--- NOTE | 2016-11-28 08:54 | SURGERY PROGRESS NOTE ---
DATE: 11/28/[address] Whyte. Laurel is in bed and no acute problem. Her mother is at her bedside bed. She states she has had multiple bowel movements yesterday, probably 10. Last 3 days she has had significant bowel movements. She had been on Reglan, this was discontinued yesterday. She is still complaining of nausea off and on. She said she did well until dinner last night, but apparently her history is longstanding that she has had problems with abdominal upsets. Her abdomen is softly distended. There is no localized tenderness. There is some induration along the incision. Her I\T\Os, she has been slightly positive for last 3 days. I will cut her IVs down to 75 mL an hour. Laboratory hightower, this morning her potassium was 3.6, her sodium was 148 and chloride was 119. Hemoglobin 7.9, pretty much dropped a little bit, this may be all dilutional, and WBC is 5.0, there is no left shift. Certainly, she does not have any symptoms of any specific GI pathology. She denies any symptoms that would suspect it to be a gallbladder problem, but given this atypical presentation and a longstanding abdominal discomfort that she has had, especially related to oral intake, we will get an ultrasound of the abdomen for the right upper quadrant. Meantime, I would cut down her IVs as stated and certainly she should be kept here until her clinical picture stabilizes. SUE
[2016-11-28 09:25] VITALS: BP 114/73; PULSE 53; TEMP 36.6; O2SAT 98
--- NOTE | 2016-11-28 10:31 | Surgery Progress Note ---
Surgery Progress Note Date of Service Nov 28, 2016. Subjective Post OP Day: + ambulating, + diet, + feeling well, + flatus, + pain controlled Objective Vital Signs: Date Time Temp Pulse Resp B/P Pulse Ox O2 Delivery O2 Flow Rate FiO2 11/27/16 23:15 36.9 75 16 124/78 96 Room Air 11/27/16 23:15 96 Room Air 11/27/16 16:05 Room Air 11/27/16 16:05 36.7 57 16 122/81 100 Room Air General Appearance: no apparent distress Abdomen: normal bowel sounds, non tender, non distended, soft Incision(s): clean, dry, intact Extremities: non-tender, normal inspection, no pedal edema Laboratory Results: Results Past 24 Hours Test 11/28/16 06:14 Range/Units Assessment & Plan POD#8 continue in hospital till abdominal pain stable full liquids POD#8 ultrasound gallbladder pending
--- NOTE | 2016-11-28 14:10 | DIAGNOSTIC IMAGING REPORT ---
Right upper quadrant ultrasound GALLBLADDER-ABD LIMITED CLINICAL HISTORY: nausea pain TECHNIQUE: Ultrasound COMPARISON STUDY: None FINDINGS: Mild fatty infiltration of liver. Moderate gallbladder sludge. No shadowing gallstones. Common bile duct 5 mm. Right kidney negative for hydronephrosis. Pancreas unremarkable. IMPRESSION: 1. Fatty infiltration of liver. 2. Moderate gallbladder sludge. 3. Normal caliber bile ducts. Electronically signed by: Cristi Ortiz M.D. 11/28/2016 2:09 PM Dictated Date/Time: 11/28/2016 2:07 PM
[2016-11-28 15:30] VITALS: BP 144/91; PULSE 52; TEMP 36.5
[2016-11-28] MEDS: IBUPROFEN 600 MG TAB PO PRN (20:09)
[2016-11-28 20:30] VITALS: BP 142/85; PULSE 52; TEMP 36.7
[2016-11-29] MEDS: OXYCODONE/ACETAMINOPHEN 5-325 TAB PO PRN (00:30)
[2016-11-29] MEDS: ONDANSETRON INJ 2 MG/ML 2 ML VIAL IV PRN (00:31)
[2016-11-29 00:45] VITALS: BP 136/85; PULSE 62; TEMP 36.9
[2016-11-29] MEDS: D5NSS + 20MEQ KCL 1,000 ML IV SCH (03:42)
[2016-11-29 07:31] VITALS: BP 132/76; PULSE 50; TEMP 36.7
--- NOTE | 2016-11-29 07:31 | Gastroenterology Progress Note ---
Progress Note Date of Service: Nov 29, 2016 Subjective Pt evaluation today including: conversation w/ patient, conversation w/ family , physical exam The patient states that she does feel improved today. She was able to tolerate a full liquid diet last evening and some toast. She is passing some stool which is liquid in nature without cramping or discomfort. We have started her on short course of prednisone yesterday and she wonders if this may have helped improve her symptoms. Review of Systems Constitutional: No fever, No sweats Respiratory: No cough, No shortness of breath, No wheezing Cardiac: No chest pain, No edema, No palpitations Medications Current Inpatient Medications Medications (Trade) Dose Ordered Sig/Lloyd Route Start Time Stop Time Status Last Admin Dose Admin Oxytocin (Pitocin IV) 30 units UD PRN IV 11/20/16 07:45 12/20/16 07:44 11/20/16 08:19 30 UNITS Oxycodone/ Acetaminophen (Percocet 5-325mg Tab) 1 tab Q4H PRN PO 11/21/16 15:00 12/05/16 14:59 11/29/16 00:30 1 TAB Oxycodone/ Acetaminophen (Percocet 5-325mg Tab) 2 tab Q4H PRN PO 11/21/16 15:00 12/05/16 14:59 Ibuprofen (Motrin Tab) 600 mg Q4H PRN PO 11/20/16 23:00 12/20/16 22:59 11/28/16 20:09 600 MG Ondansetron HCl (Zofran Inj) 4 mg Q4H PRN IV 11/21/16 15:00 12/21/16 14:59 11/29/16 00:31 4 MG Prenat Multivit/ [place]/Iron/Folic Ac ( Vitamin Tab) 1 tab DAILY PO 11/21/16 08:00 12/21/16 07:59 11/22/16 09:10 1 TAB Cocaine HCl (Supercream 0.870% Cr) BID PRN EXT 11/20/16 23:00 12/04/16 22:59 Lanolin (Lanolin Oint) PRN PRN EXT 11/20/16 23:00 12/20/16 22:59 Hydrocortisone Acetate (Anusol Hc Supp) 25 mg BID PRN MS 11/20/16 23:00 12/20/16 22:59 Benzocaine (Dermoplast Aero Spr) 1 appln PRN PRN EXT 11/20/16 23:00 12/20/16 22:59 Simethicone (Mylicon Chew Tab) 80 mg QID PO 11/21/16 08:00 12/21/16 08:59 11/28/16 19:36 80 MG Diphenhydramine HCl (Benadryl Cap) 25 mg QID PRN PO 11/21/16 15:00 12/21/16 14:59 Senna (Senokot Tab) 17.2 mg HS PRN PO 11/20/16 23:00 12/20/16 22:59 Morphine Sulfate (Duramorph Pf Inj) TODAY PRN EPI 11/20/16 23:00 Ferrous Sulfate (Feosol Tab) 325 mg BID PO 11/21/16 20:00 12/21/16 19:59 11/22/16 20:10 325 MG Benzocaine/ Butamben/ Tetracaine HCl 1 appln 1 appln Q2H PRN EXT 11/23/16 14:15 12/23/16 14:14 11/25/16 08:37 1 APPLN Potassium Chloride/Dextrose/ Sod Cl (D5nss + 20meq KCl) 1,000 ml @ 75 mls/hr [id number] IV 11/25/16 09:45 12/25/16 09:44 11/29/16 03:42 75 MLS/HR Phenol (Chloraseptic 1.4% [place]) 2 sprays Q2HWA PRN MT 11/25/16 14:00 12/25/16 13:59 11/25/16 14:15 2 SPRAYS Menthol (Nice Emma) 1 emma Q2HWA PRN PO 11/25/16 14:00 12/25/16 13:59 11/25/16 14:15 1 EMMA Ketorolac Tromethamine (Toradol Inj) 30 mg Q6H PRN IV. 11/27/16 01:00 12/02/16 00:59 Ioversol (Optiray 320) 111 ml UD PRN IV 11/27/16 09:15 12/01/16 09:14 Prednisone (PredniSONE TAB) 15 mg DAILY PO 11/28/16 08:00 12/05/16 08:16 11/28/16 10:23 15 MG Objective Vital Signs Date Time Temp Pulse Resp B/P Pulse Ox O2 Delivery O2 Flow Rate FiO2 11/29/16 00:45 36.9 62 18 136/85 11/29/16 00:45 Room Air 11/28/16 20:30 36.7 52 18 142/85 Room Air 11/28/16 15:30 36.5 52 20 144/91 Room Air 11/28/16 15:30 Room Air 11/28/16 09:25 36.6 53 18 114/73 98 Room Air 11/28/16 09:20 Room Air Physical Exam General Appearance: no apparent distress Eyes: PERRL Respiratory/Chest: lungs clear Cardiovascular: no edema, no JVD, no murmur Abdomen: non tender, soft Skin: no rash Assessment and Plan Patient s/p a C section last week found to have evidence of "angioedema" on a recent CT scan. Her labs screening for evidence of C1 esterase deficiency are pending. I would suggest that she complete a one-week course of prednisone at 15 mg per day. She should also have a follow-up evaluation by an utility locator to determine if long-term therapy would be needed. Recommendations Advance diet as tolerated Prednisone 15 mg per day 1 week Patient should be seen by allergy to determine if long-term therapy is indicated Please call with any questions or concerns GI to sign off
[2016-11-29] MEDS: PRENATAL VITAMIN TAB PO SCH (08:00)
[2016-11-29] MEDS: FERROUS SULFATE 325 MG TAB PO SCH (08:00)
[2016-11-29] MEDS: SIMETHICONE 80 MG CHEW PO SCH (08:08)
--- NOTE | 2016-11-29 08:27 | Discharge Instructions ---
Discharge Instructions Admission Reason for Admission: Induction Discharge Discharge Diagnosis / Problem: TERM DELIVERED Discharge Goals Goal(s): Routine recovery after surgery Activity Recommendations Activity Limitations: as noted below Lifting Limitations: no more than 10 pounds Exercise/Sports Limitations: until after follow-up appointment May Resume Sexual Activity: after follow-up appointment Shower/Bathe: no limitations Driving or Machine Use: ACTIVITY RECOMMENDATIONS: * Gradual return to full activity over the next 2-3 weeks. * No lifting - nothing heavier than baby over the next 2-3 weeks. * Do not engage in vigorous exercise, sexual activity or sports until cleared by your physician. * Do not drive or operate any motorized equipment until cleared by your physician. * You may shower/bathe daily. BREAST CARE: If you are not breast feeding: * Wear a supportive bra 24 hours a day for one to two weeks. * Avoid stimulating your breasts and nipples as much as possible during the first few weeks after delivery. * When taking a shower, have the warm water hit your back, not breasts. * When your breasts feel full, apply ice packs. Usually three to four times a day helps ease the discomfort. * Take a mild pain medication (Tylenol/Motrin) when you are uncomfortable. If breast feeding: * Use breast milk to lubricate nipples. Lansinoh cream may be used for sore nipples. You do not need to remove cream prior to breast feeding. If using a different brand of cream, check the label for directions regarding removal of cream prior to nursing. * Wear a supportive bra. * If having problems with breasts or breast feeding, call a data governance consultant or your health care provider. OVER THE COUNTER MEDICATION: * For discomfort or pain, you may use Acetaminophen (Tylenol), Ibuprofen (Advil ), or Naproxen (Aleve) following the package directions. * For constipation you may use Colace following the package directions. SPECIAL CARE INSTRUCTIONS: When you are discharged from the hospital, it is important for you to follow the instructions listed below: * During the first week at home, you should be able to care for yourself and your baby. In addition, the usual light household activities are encouraged. * Limit your activities to the way you feel. Do not try to clean the house or move furniture. Be sensible. * If you actively engage in sports and have done so up until the time of your delivery, you may resume these activities as soon as you feel able. This may take up to one month or even longer. Use good judgment. * Continue to take your vitamins for at least six weeks after the of your baby. * Your diet need not be limited unless you were on a special diet before your delivery. Breast-feeding mothers need around 2500 calories per day and at least 64-80 ounces of fluid per day (8 to 10 glasses). * You should eat foods from the four major food groups. Crash diets or fad diets are to be avoided. Eating lean meats, fresh fruits and vegetables, low-fat dairy products, high fiber foods and a regular exercise program, will help you get back to your pre- weight without putting your health at risk. * Constipation is sometimes a problem after delivery. Take a mild laxative as needed. If breast feeding, Milk of Magnesia is acceptable to use. You may use a suppository or Fleets enema if no episiotomy. * A daily shower or tub bath is suggested. Be sure to thoroughly and gently dry the perineum. * A bloody vaginal discharge will usually continue until around four weeks post . A small amount of bleeding may continue for as long as six weeks. Vaginal discharge changes from the bright red bleeding after delivery to pink then brownish and finally yellowish-pink before becoming white and disappearing. * Bleeding may increase with activity. Your first period may come in 4-8 weeks. If you are breast feeding, your period may be delayed even longer. * [place] (sex) can begin whenever both you and your partner feel comfortable and do not have any form of genital infection. It is recommended that you wait at least six weeks for internal and external healing to occur. If you have questions, please talk to your health care practitioner. A condom should be used to prevent infection and . * Foreplay, gentle intercourse and lubrication is very important the first several times to prevent pain. A water-based lubricant such as K-Y jelly or Astroglide may be used. * Tampons and/or Douching should be avoided until after six weeks check-up. * If you have RH negative blood and your baby is RH positive, you will receive RHOGAM by injection prior to discharge. The nurse will give you a card to keep with you that has the date and place that you received RHOGAM after delivery. * During your care, you had a Rubella screen done to check for the presence of rubella antibodies in your blood. If your test was negative, you will receive a Rubella vaccine prior to discharge. This vaccine may cause a fever, soreness at the injection site and flu-like symptoms. If these symptoms persist, notify your health care practitioner. is not advised for three months after a Rubella vaccine. * Verbalizes understanding of car seat law as reviewed with patient nursing. * Car Seat hand-out given and reviewed with patient by nursing. * Shaken baby information reviewed with patient by nursing. Call you doctor if: * Heavy bleeding (saturating several pads an hour) or passing clots the size of your fist. * A fever >101 degrees F (38.3 degrees C) on two occasions four hours apart and /or chills. * Unusual pain in the pelvic or vaginal areas. Pain should improve each day . * Call the doctor for any increased redness, drainage or swelling around the incision and any pain unrelieved by prescribed pain medication. * Any signs or symptoms of phlebitis (possible blood clots forming in the veins ): leg pain, warm, red or swollen area on leg. * "Baby Blues" lasting longer than two weeks. If you have any questions or concerns, call your health care practitioner at . FOLLOW-UP VISIT: * Incision check (staple removal) in 1 week. Please call doctor's office at to set up appointment. * Please call the office at to schedule a 6 week examination. It is important you keep this appointment. * It is important for you to make arrangements for either yearly or twice yearly check-ups thereafter. . Current Hospital Diet Patient's current hospital diet: Regular OB Diet Discharge Diet Recommended Diet: Regular OB Diet Fluid Restriction: None Procedures Procedures Performed: Primary caesarean section Delivery of live male child at 2147 Lower uterine transverse incision Pending Studies Studies pending at discharge: no Medical Emergencies . Who to Call and When: Medical Emergencies: If at any time you feel your situation is an emergency, please call 911 immediately. . Non-Emergent Contact Non-Emergency issues call your: Primary Care Provider . . "Provider Documentation" section prepared by Javed Flood. VTE Core Measure Inpt VTE Proph given/why not?: Treatment not indicated
[2016-11-29] MEDS ORDERED: MTR600X PO (08:28)
[2016-11-29] MEDS ORDERED: OXYC-57 PO (08:28)
[2016-11-29] MEDS ORDERED: PRD5 PO (08:30)
--- NOTE | 2016-11-29 08:33 | SURGERY PROGRESS NOTE ---
DATE: 11/29/2016 Laurel and her were walking the hallways with the new baby and she was feeling much better than she has been. She states her abdomen is much softer than it had been. Her last vitals showed a temperature of 36.7, pulse 50, respirations 20, blood pressure 132/76, O2 sat 98 on room air. I\T\O, she has moved her bowels about 4 times during the night, but it seems to be more gas as she related. The abdomen, as I said, it appears softer. The ultrasound that I obtained yesterday of her gallbladder did show some sludge, but certainly this is not the etiology of what is going on now. She does have a longstanding history of some food intolerances and I did recommend to her that she should follow up with the primary doctor in the future if any new issues arise that may need to be addressed. From my point of view, the patient can be discharged at the discretion of GI and the primary service.
--- NOTE | 2016-11-29 08:41 | Discharge Instructions ---
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 Current Hospital Diet Patient's current hospital diet: Regular OB Diet Discharge Diet Recommended Diet: Regular OB Diet Procedures Procedures Performed: Primary caesarean section Delivery of live male child at 2147 Lower uterine transverse incision Pending Studies Studies pending at discharge: no Medical Emergencies . Who to Call and When: Medical Emergencies: If at any time you feel your situation is an emergency, please call 911 immediately. . Non-Emergent Contact Non-Emergency issues call your: Primary Care Provider . . "Provider Documentation" section prepared by Javed Flood. VTE Core Measure Inpt VTE Proph given/why not?: Treatment not indicated
--- NOTE | 2016-11-29 08:42 | Discharge Instructions ---
Discharge Instructions Admission Reason for Admission: Induction Discharge Discharge Diagnosis / Problem: TERM DELIVERED Discharge Goals Goal(s): Routine recovery after , Routine recovery after surgery Activity Recommendations Activity Limitations: as noted below Lifting Limitations: gradually increase as tolerated May Resume Sexual Activity: after follow-up appointment Shower/Bathe: no limitations Driving or Machine Use: . Current Hospital Diet Patient's current hospital diet: Regular OB Diet Discharge Diet Recommended Diet: Regular OB Diet Procedures Procedures Performed: Primary caesarean section Delivery of live male child at 2147 Lower uterine transverse incision Pending Studies Studies pending at discharge: no Medical Emergencies . Who to Call and When: Medical Emergencies: If at any time you feel your situation is an emergency, please call 911 immediately. . Non-Emergent Contact Non-Emergency issues call your: Primary Care Provider . . "Provider Documentation" section prepared by Javed Flood. VTE Core Measure Inpt VTE Proph given/why not?: Treatment not indicated
[2016-11-29 13:10] VITALS: BP_DIAS 76; PULSE 50; TEMP 36.7
[2016-12-02 23:33] LABS: C1 ESTERASE INHIB FUNC 97 % (>=68); C1 ESTERASE INHIB TC298 36 mg/dL (21-39)
--- NOTE | 2016-12-14 06:52 | Discharge Summary ---
Discharge Summary Admission Date: Nov 20, 2016 at 07:05 Discharge Date: Nov 29, 2016 Discharge Disposition: Home Principal Diagnosis: Post dates , Primary section secondary to intolerance of labor, postop ileus, angioedema of small bowel Procedures: Primary Section Consultations: General Surgery, GI Medication Reconciliation New Medications: Ibuprofen (Ibuprofen) 600 Mg Tab 600 MG PO Q4H PRN for Pain, BOU[place], Cramping, or Fever, #30 TAB 2 Refills Oxycodone/Acetaminophen 5MG/325MG (Percocet 5MG/325MG) Tab 1 TAB PO Q4H PRN for Pain - Pain Scale 1-5, #20 TAB 0 Refills PAIN Prednisone (Prednisone) 5 Mg Tab 15 MG PO DAILY for 7 Days, #7 TAB 0 Refills Continued Medications: Multivitamin (Multivitamin) Tab 1 TAB PO QAM, TAB Admission Information HPI (per Admitting provider): The patient is a 36-year-old 4, para 1 at 40 weeks and 3 days' gestation, who presents to labor and delivery for a scheduled induction of labor secondary to being post her due date and polyhydramnios. Her care has been uncomplicated otherwise. She is GBS positive and will begin with penicillin for GBS prophylaxis. She had a history of 1 spontaneous vaginal delivery in April of 2012. Physical Exam (per Admitting): General Appearance: WD/WN Head: normocephalic Eyes: normal inspection ENT: normal ENT inspection Neck: supple, no JVD Respiratory/Chest: chest non-tender, lungs clear Cardiovascular: regular rate, rhythm, no edema, no gallop, no JVD Abdomen/GI: normal bowel sounds, non tender, soft, no organomegaly Extremities/Musculoskelatal: normal inspection, no calf tenderness Neurologic/Psych: supervisor looping II-XII nml as tested, no motor/sensory deficits Hospital Course Patient underwent a primary section on 11/21/16 secondary to intolerance of labor. Both patient and baby tolerated the surgery well. postop recovery was complicated with abdominal distention and pain. An abdominal x-ray was done on and showed a postop small bowel ileus with no signs of obstruction. Due to her continued pain and distention an NG tube was placed on the evening of 11/23/16 and drained a signifcant amount of bowel content. The NG remained and was on intermittent suction. Gneral surgery and GI were both consulted. A Ct scan of the abdomen showed angioedema of the small bowel. She was started on a short course of prednisone. She continued to improve and the NG tube was finally removed. She was able to tolerate a full liquid diet and was moving her bowels. She was discharged on 11/29/16 with discharge instructions. Total time spent on discharge = 30 mins This includes examination of the patient, discharge planning, medication reconciliation, and communication with other providers. Discharge Instructions ACTIVITY RECOMMENDATIONS: * Gradual return to full activity over the next 2-3 weeks. * No lifting - nothing heavier than baby over the next 2-3 weeks. * Do not engage in vigorous exercise, sexual activity or sports until cleared by your physician. * Do not drive or operate any motorized equipment until cleared by your physician. * You may shower/bathe daily. BREAST CARE: If you are not breast feeding: * Wear a supportive bra 24 hours a day for one to two weeks. * Avoid stimulating your breasts and nipples as much as possible during the first few weeks after delivery. * When taking a shower, have the warm water hit your back, not breasts. * When your breasts feel full, apply ice packs. Usually three to four times a day helps ease the discomfort. * Take a mild pain medication (Tylenol/Motrin) when you are uncomfortable. If breast feeding: * Use breast milk to lubricate nipples. Lansinoh cream may be used for sore nipples. You do not need to remove cream prior to breast feeding. If using a different brand of cream, check the label for directions regarding removal of cream prior to nursing. * Wear a supportive bra. * If having problems with breasts or breast feeding, call a customer sales consultant or your health care provider. OVER THE COUNTER MEDICATION: * For discomfort or pain, you may use Acetaminophen (Tylenol), Ibuprofen (Advil ), or Naproxen (Aleve) following the package directions. * For constipation you may use Colace following the package directions. SPECIAL CARE INSTRUCTIONS: When you are discharged from the hospital, it is important for you to follow the instructions listed below: * During the first week at home, you should be able to care for yourself and your baby. In addition, the usual light household activities are encouraged. * Limit your activities to the way you feel. Do not try to clean the house or move furniture. Be sensible. * If you actively engage in sports and have done so up until the time of your delivery, you may resume these activities as soon as you feel able. This may take up to one month or even longer. Use good judgment. * Continue to take your vitamins for at least six weeks after the of your baby. * Your diet need not be limited unless you were on a special diet before your delivery. Breast-feeding mothers need around 2500 calories per day and at least 64-80 ounces of fluid per day (8 to 10 glasses). * You should eat foods from the four major food groups. Crash diets or fad diets are to be avoided. Eating lean meats, fresh fruits and vegetables, low-fat dairy products, high fiber foods and a regular exercise program, will help you get back to your pre- weight without putting your health at risk. * Constipation is sometimes a problem after delivery. Take a mild laxative as needed. If breast feeding, Milk of Magnesia is acceptable to use. You may use a suppository or Fleets enema if no episiotomy. * A daily shower or tub bath is suggested. Be sure to thoroughly and gently dry the perineum. * A bloody vaginal discharge will usually continue until around four weeks post . A small amount of bleeding may continue for as long as six weeks. Vaginal discharge changes from the bright red bleeding after delivery to pink then brownish and finally yellowish-pink before becoming white and disappearing. * Bleeding may increase with activity. Your first period may come in 4-8 weeks. If you are breast feeding, your period may be delayed even longer. * [place] (sex) can begin whenever both you and your partner feel comfortable and do not have any form of genital infection. It is recommended that you wait at least six weeks for internal and external healing to occur. If you have questions, please talk to your health care practitioner. A condom should be used to prevent infection and . * Foreplay, gentle intercourse and lubrication is very important the first several times to prevent pain. A water-based lubricant such as K-Y jelly or Astroglide may be used. * Tampons and/or Douching should be avoided until after six weeks check-up. * If you have RH negative blood and your baby is RH positive, you will receive RHOGAM by injection prior to discharge. The nurse will give you a card to keep with you that has the date and place that you received RHOGAM after delivery. * During your care, you had a Rubella screen done to check for the presence of rubella antibodies in your blood. If your test was negative, you will receive a Rubella vaccine prior to discharge. This vaccine may cause a fever, soreness at the injection site and flu-like symptoms. If these symptoms persist, notify your health care practitioner. is not advised for three months after a Rubella vaccine. * Verbalizes understanding of car seat law as reviewed with patient nursing. * Car Seat hand-out given and reviewed with patient by nursing. * Shaken baby information reviewed with patient by nursing. Call you doctor if: * Heavy bleeding (saturating several pads an hour) or passing clots the size of your fist. * A fever >101 degrees F (38.3 degrees C) on two occasions four hours apart and /or chills. * Unusual pain in the pelvic or vaginal areas. Pain should improve each day . * Call the doctor for any increased redness, drainage or swelling around the incision and any pain unrelieved by prescribed pain medication. * Any signs or symptoms of phlebitis (possible blood clots forming in the veins ): leg pain, warm, red or swollen area on leg. * "Baby Blues" lasting longer than two weeks. If you have any questions or concerns, call your health care practitioner at . FOLLOW-UP VISIT: * Incision check (staple removal) in 1 week. Please call doctor's office at to set up appointment. * Please call the office at to schedule a 6 week examination. It is important you keep this appointment. * It is important for you to make arrangements for either yearly or twice yearly check-ups thereafter.
--- NOTE | 2016-12-30 13:02 | EDITING REQUIRED CODING QUERY ---
ANEMIA To promote full compliance with coding requirements relating to patient care, physician participation is requested in all cases of electrical maintenance supervisor uncertainty. Please assist us with the question(s) below: Coding Question(s): The record reflects the following clinical findings: If these findings are indicative of anemia, please specify the known or suspected type by placing an "X" within the parenthesis (x). If other, please document type. Examples are: ( ) Acute blood loss anemia (X) Acute Postoperative blood loss anemia ( ) Acute postoperative anemia due to dilutional fluids ( ) Chronic blood loss anemia ( ) Anemia of chronic disease ( ) Aplastic anemia ( ) Anemia due to renal disease ( ) Anemia in neoplastic disease ( ) Iron deficient anemia ( ) Anemia, unspecified or other ( ) Other: (please specify) ( ) Unable to determine Thank you Samantha Mcconnell
== END 2016-11-29 13:20 | disposition home or self-care (01) | DRG 765 ==
LOC: EDSTATUS 07:30 → C.LD 11-20 07:05 → C.OBG 11-21 02:02
PROVIDERS: ADMIT Obstetrics & Gynecology; ATTEND Obstetrics & Gynecology
PROC: 10D00Z1 Extraction of Products of Conception, Low, Open Approach (ICD-10-PCS; principal; 2016-11-20 21:18)
PROC: 3E033VJ Introduction of Other Hormone into Peripheral Vein, Percutaneous Approach (ICD-10-PCS; principal; 2016-11-20 21:18)
DX: O48.0 Post-term pregnancy (principal); O40.3XX1 Polyhydramnios, third trimester, fetus 1; K91.89 Other postprocedural complications and disorders of digestive system; K56.7 Ileus, unspecified; D62 Acute posthemorrhagic anemia; O34.13 Maternal care for benign tumor of corpus uteri, third trimester; O76 Abnormality in fetal heart rate and rhythm complicating labor and delivery; N73.6 Female pelvic peritoneal adhesions (postinfective); O99.820 Streptococcus B carrier state complicating pregnancy; D25.9 Leiomyoma of uterus, unspecified